=== PATIENT | female | born 1970 | race Caucasian/White ===

== ENCOUNTER 2020-09-15 22:47 | Emergency (ER) | payer MEDICAID, SELFPAY ==
[2020-09-15 22:48] VITALS: BP 170/114; PULSE 78; RESP 18; TEMP 37.1; O2SAT 94; BMI 36.3
--- NOTE | 2020-09-15 23:13 | RAD_ITS ---
STUDY: X-RAY - LEFT HAND REASON FOR EXAM: Female, 50 years old. bite TECHNIQUE: 3 view(s) of the hand. COMPARISON: None. FINDINGS: Normal radiocarpal articulation. Normal distal radioulnar joint. Normal visualized carpal bones. Normal carpal articulations Normal carpometacarpal articulation of the thumb. Normal second through fifth carpometacarpal joints. Normal metacarpi. Normal metacarpophalangeal joint of the thumb. Normal interphalangeal joint of the thumb. Normal proximal and distal phalanges of the thumb. Normal metacarpophalangeal joints of the second through fifth fingers. Normal proximal and distal interphalangeal joints of the second through fifth fingers. Normal phalanges of the second through fifth fingers. The soft tissue structures are unremarkable. RAD/Hand Min 3 Views IMPRESSION: Normal x-ray examination of the hand. Electronically Signed: Bernardo Greene DO at 23:37 EDT Tel , Service support ,
--- NOTE | 2020-09-15 23:13 | RAD_ITS ---
STUDY: X-RAY - LEFT WRIST REASON FOR EXAM: Female, 50 years old. bite TECHNIQUE: 3 view(s) of the wrist were obtained. COMPARISON: None. FINDINGS: Normal visualized distal radius and ulna. Normal radiocarpal articulation. Normal distal radioulnar articulation. Normal carpal bones. Normal carpal articulations. Normal carpometacarpal articulation of the thumb. Normal second through fifth carpometacarpal articulations. Normal visualized metacarpal bones. Diffuse soft tissue swelling RAD/Wrist min 3 Views IMPRESSION: Soft tissue swelling without acute osseous finding Electronically Signed: Bernardo Greene DO at 23:37 EDT Tel , Service support ,
[2020-09-15] MEDS: morphine 8 MG/ML Syringe IM (23:20)
[2020-09-15] MEDS: Lidocaine 1% /Epi 1:100 (20ml) 20 ML Vial INFILT (23:21)
[2020-09-15] MEDS: BACITRACIN 15 GM Tube 1 APPLIC TOPICAL (23:22)
[2020-09-16 01:00] VITALS: RESP 16
--- NOTE | 2020-09-16 02:45 | EDS_ITS ---
HPI History of Present Illness Chief Complaint: Bite Narrative Narrative: Patient presenting for evaluation secondary to a dog bite. This was a known dog, it bit her left hand and wrist. Patient states that she is up-to-date on her tetanus. She reports a moderate to severe amount of pain in her left hand and wrist and multiple lacerations. Patient reports that the dog is achy up-to-date on its vaccines. Review of systems otherwise negative. [facility] Medical History Cervical cancer Home Medications acetaminophen 650 mg PO Q6H PRN PRN 09/15/20 [History Last Taken Unknown] amoxicillin-pot clavulanate [Augmentin] 1 tab PO BID #20 tab 09/16/20 [Rx Last Taken Unknown] oxycodone-acetaminophen [Percocet] 1 tab PO Q8H PRN 3 Days #9 tab 09/16/20 [Rx Last Taken Unknown] Allergy/AdvReac Type Severity Reaction Status Date / Time No Known Allergies Allergy Verified 09/15/20 22:49 Surgical History H/O: History of cholecystectomy Social History Smoking Status: Current every day smoker tobacco type: cigarettes ROS ROS ED Constitutional Constitutional ED: Denies fever(s) Respiratory/Chest Respiratory/Chest: Denies cough or dyspnea Gastrointestinal Gastrointestinal: Reports nausea; Denies vomiting Musculoskeletal Musculoskeletal: Reports other Details: Pain and dog bites Integumentary Reports other Details: Positive for wounds Neurologic Neurologic: Denies paresthesias or weakness Hematologic/Lymphatic Hematologic/Lymphatic: Denies easy bleeding or easy bruising Allergic/Immunologic Allergic/Immunologic ED: Reports other Details: No history of immunosuppression EXAM Physical Exam Const Vital Signs: 09/15/20 22:48 09/16/20 01:00 09/16/20 02:59 Temperature 98.7 F Temperature Source Temporal Pulse Rate 78 80 Respiratory Rate 18 16 16 Blood Pressure 170/114 H Blood Pressure Mean 132 Pulse Ox 94 97 Oxygen Delivery Method Room Air Positive well nourished and well developed General Appearance ED: well developed and NAD HEENT atraumatic Eyes EOMs intact bilaterally Neck full ROM Resp normal respiratory effort and clear to auscultation bilaterally Cardio regular rhythm and no murmurs Cardio Narrative: 2+ radial pulses bilaterally symmetric Rate: regular rate Extremity Extremity Narrative: Examination of the patient's left hand and wrist shows multiple lacerations as noted. There is normal flexion and extension of the fingers, normal flexion extension abduction and adduction of the thumb. Normal flexion extension at the wrist. Normal sensation over all dermatomes normal capillary refill normal pulses. Neuro oriented x3, no focal motor deficits and no sensory deficits noted Sensorium / Orientation: alert Psych mental status grossly normal Skin Skin Narrative: Wounds as noted Image ED - Upper Extremity Diagram: 1. 4cm 2. 2cm 3. 6cm 4. 4cm 5. 6cm 6. 4cm flap 7. #3 small (2-5mm) communicating puncture wounds 8. 5mm PROC Procedures Upper Extremity Splints Upper Extremity Splint: Orthoglass and Volar Splint Fabrication: Fabricated Location: Left Other Procedures Procedure(s): Complex laceration repair: Multiple laceration repair was performed on the patient's hand, I will refer to the lacerations by their numbering in the physical exam. All of the wounds were explored through full range of motion, should there be any abnormal findings these are described below. They were copiously irrigated under pressure with sterile saline. 1. 4 cm laceration on the dorsum of the forearm was anesthetized using lidocaine with epinephrine. There was a nonviable vein that was ligated with 5- 0 Vicryl suture, and the nonviable tissue was trimmed with good hemostasis. This wound was explored there was no other evidence of violation of deep structures, it was loosely approximated with 2 simple interrupted 4-0 nylon sutures 2. 2 cm laceration on the dorsum of the hand was explored. There is subcutaneous fat that was exposed posed. There was no evidence of violation of deep structures. This was approximated using a single simple interrupted 4-0 nylon suture after he was anesthetized with 1% lidocaine. 3. 6 cm laceration over the volar surface of the patient's wrist. There was a large amount of subcutaneous fat exposed. Exploration did not show evidence of violation of any deep structures or involvement of the radial artery. Exposed adipose tissue was replaced as it appeared viable, and the wound was approximated using a total of number three 4-0 nylon sutures. 4. 4 cm laceration just proximal and ulnar to #3 had a nonviable vein that was tied off with 5-0 nylon suture, was trimmed with good hemostasis. There was no evidence of violation of other deep structures. This laceration was closed using a total of number three 4-0 nylon sutures. 5. 6 cm curvilinear laceration proximal to #3 over the radial portion of the forearm. No violation of deep structures, no involvement of the radial artery. This was approximated using a total of #3 simple interrupted 4-0 nylon sutures 6. 4 cm flap-like laceration over the thenar portion of the palm of the patient's left hand. There was exposed subcutaneous fat, but no violation of deep structures. This was closed using a horizontal mattress suture, a single horizontal mattress suture was used to approximate the corner of the wound loosely using 4-0 nylon suture 7. Smaller puncture wounds that were communicating numbering 3 over the dorsal portion of the patient's proximal thumb. These were anesthetized and copiously irrigated under pressure and left open and not closed. No evidence of violation of deep structures 8. Small 0.5 cm laceration proximal and ulnar to #4. There was subcutaneous fat that was exposed. No evidence of other violation of deep structures. This was approximated using a single simple interrupted 4-0 nylon suture. The wounds were all covered with bacitracin. Nonstick dressing and Kerlix were placed over top of that. Splint was placed as noted in the separate procedure note. MDM MDM MDM Narrative Medical decision making narrative: Patient presented secondary to a dog bite. Radiographs were obtained, by my personal interpretation as well as radiology these do not demonstrate any evidence of bony injury to the hand. There was a multitude of dog bites that were repaired as noted in the procedure note. Patient was given morphine initially on presentation for pain. Patient's hand was bandaged by the ED physician as well as was placed in a fabricated volar resting splint by the ED physician as noted in the procedure note. I contacted Dr. Akhtar who agreed to see the patient in follow-up. Patient was given oxycodone and Augmentin prior to discharge, she will be discharged with a course of the same. She was educated on the importance of follow-up, the risks of being lost to follow-up including permanent debility or loss of the hand she did voiced understanding of this. Patient understands to return should she have signs of infection or worsening symptoms. Patient was discharged in stable condition. Radiography Diagnostic Testing: Radiology Impression Hand X-Ray 09/15/20 23:13 IMPRESSION: Normal x-ray examination of the hand. Electronically Signed: Bernardo Greene DO at 23:37 EDT Tel , Service support , Wrist X-Ray 09/15/20 23:13 IMPRESSION: Soft tissue swelling without acute osseous finding Electronically Signed: Bernardo Greene DO at 23:37 EDT Tel , Service support , Discharge Plan Triage Chief Complaint: Bite ED Provider: Garrett Biswas Dx/Rx/DC Orders Clinical Impression: Dog bite, Hand laceration, Laceration of wrist Instructions: ED Dog Bite, ED Laceration, Hand: All Closures Prescriptions: New amoxicillin-pot clavulanate [Augmentin] 875-125 mg tablet 1 tab PO BID Qty: 20 RF: 0 oxycodone-acetaminophen [Percocet] 5-325 mg tablet 1 tab PO Q8H PRN (Reason: pain) 3 Days Qty: 9 RF: 0 No Action acetaminophen 325 mg tablet 650 mg PO Q6H PRN PRN (Reason: Pain) RF: 0 Primary Care Provider: Salo Dyer Referrals: Salo Dyer DO [Primary Care Provider] - Rambo Akhtar MD [STAFF PHYSICIAN] - 2 Days for wound check Activity Restrictions/Additional Instructions: Follow-up with orthopedics in 2 days for wound check. Return to orthopedics or the emergency department earlier should you develop signs of infection. Disposition Disposition: Home, Self Care Discharge Date/Time: 09/16/20 03:07
[2020-09-16] MEDS: Amox/Clavulanate 875 MG Tablet PO (02:50)
[2020-09-16] MEDS: oxyCODONE 5 MG Tablet PO (02:50)
[2020-09-16 02:59] VITALS: PULSE 80; RESP 16; O2SAT 97
== END 2020-09-16 03:07 | disposition home or self-care (01) ==
PROVIDERS: Emergency Provider Emergency Medicine; PCP Student in an Organized Health Care Education/Training Program
DX: S61.552A Open bite of left wrist, initial encounter (principal); S61.452A Open bite of left hand, initial encounter; S51.852A Open bite of left forearm, initial encounter; F17.210 Nicotine dependence, cigarettes, uncomplicated; W54.0XXA Bitten by dog, initial encounter; Y93.89 Activity, other specified; Y92.007 Garden or yard of unspecified non-institutional (private) residence as the place of occurrence of the external cause; Y99.8 Other external cause status
CPT/HCPCS: 12006; 29125; 73110; 73130; 96372; 99284

== ENCOUNTER 2021-03-17 20:40 | Emergency (ER) | payer MEDICAID, SELFPAY ==
[2021-03-17 20:40] VITALS: BP 181/108; PULSE 99; RESP 18; TEMP 36.3; O2SAT 99; BMI 37.3
--- NOTE | 2021-03-17 21:31 | EDS_ITS ---
HPI History of Present Illness Chief Complaint: General Illness Informant: patient Onset/Context/Timing Onset: Days (4) Context: Gradual Onset Timing: Continuous Quality: [employer] cough, sob Current Severity: Moderate Maximum Severity: Moderate Worsened by: exertion Relieved by: rest Associated Symptoms Associated Symptoms: fatigue/malaise, cough, myalgias, headaches Associated Symptoms ED: cough Narrative Narrative: Patient with cold/flu symptoms for the past 4 days. Mild dyspnea with exertion, it takes a bit of exertion for her to feel this. No chest discomfort, abdominal pain, vomiting, or diarrhea. Unvaccinated. She is otherwise healthy she states. Denies any leg pain or swelling or recent long travel. 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 [facility] Medical History Cervical cancer Home Medications NK 03/17/21 [History Last Taken Unknown] Allergy/AdvReac Type Severity Reaction Status Date / Time No Known Allergies Allergy Verified 09/15/20 22:49 Surgical History H/O: History of cholecystectomy Social History Smoking Status: Current every day smoker tobacco type: cigarettes ROS ROS ED Constitutional Constitutional ED: Reports body ache(s), chills, fatigue, fever(s), headache(s) and malaise Eyes Eyes: Denies change in vision or diplopia ENT ENT ED: Denies rhinorrhea or sore throat Cardiovascular Cardiovascular: Denies chest pain or palpitations Respiratory/Chest Respiratory/Chest: Reports cough and dyspnea on exertion Gastrointestinal Gastrointestinal: Denies abdominal pain, diarrhea, nausea or vomiting Genitourinary Genitourinary ED: Denies dysuria or hematuria Musculoskeletal Musculoskeletal: Denies back pain or neck pain Integumentary Denies abscess or rash Neurologic Neurologic: Reports headache(s); Denies paresthesias or weakness Psychiatric Psychiatric: Denies anxiety or suicidal thoughts EXAM Physical Exam Const Vital Signs: 03/17/21 20:40 03/17/21 21:49 03/17/21 23:16 Temperature 97.4 F L Temperature Source Temporal Pulse Rate 99 Respiratory Rate 18 Respiratory Effort Normal Respiratory Pattern Normal Blood Pressure 181/108 H 137/81 H Blood Pressure Mean 132 99 Pulse Ox 99 Oxygen Delivery Method Room Air Positive well nourished and well developed Constitutional Narrative: Malaised-appearing, no distress General Appearance ED: well developed and NAD HEENT Reports moist mucous membranes normocephalic and atraumatic Eyes PERRL and EOMs intact bilaterally Neck full ROM and supple Resp normal respiratory effort and clear to auscultation bilaterally Cardio regular rate, regular rhythm and no murmurs Rate: Negative for tachycardic GI non-tender and non-distended Auscultation: normoactive bowel sounds Palpation: soft Back/Spine no CVA tenderness General Back: other FROM Extremity normal to inspection and no calf tenderness General Extremety ED: Negative for edema, pulses abnormal or tenderness General Extremity: Negative for edema or pulses abnormal Neuro oriented x3, CN's II-XII intact bilaterally and no sensory deficits noted Sensorium / Orientation: awake and alert Motor Exam: strength 5/5 throughout Skin no rashes or lesions noted and no wounds MDM MDM MDM Narrative Medical decision making narrative: Patient symptoms highly suspicious for COVID- 19 especially since she was unvaccinated. Her rapid is negative but with the current omicron variant, the rapid test is less accurate. Therefore PCR was sent and a center of her chest x-ray, which is normal. Patient is reassured, we rechecked her blood pressure since her initial 1 was very high, it is normal. She has been taking some cold medication which could be contributing to this. At this time I recommend supportive care, and isolating herself as if she could have COVID-19. We discussed reasons to return. Radiography Diagnostic Testing: Clinical Impression(s) from Imaging Studies Chest X-Ray 03/17/21 22:20 IMPRESSION: Normal x-ray examination of the chest. Electronically Signed: Bernardo Greene DO at 23:11 EST Tel , Service support , Discharge Plan Triage Chief Complaint: General Illness ED Provider: Shalom Menchaca Dx/Rx/DC Orders Clinical Impression: Acute viral syndrome, Suspected 2019-nCoV infection Instructions: Coronavirus Disease 2019 (COVID-19): Overview Prescriptions: No Action NK RF: 0 Primary Care Provider: Salo Dyer Referrals: Salo Dyer, [Primary Care Provider] - 1 Week if not improving Activity Restrictions/Additional Instructions: Try to get a home portable pulse oximeter and closely watch your oxygen levels periodically. If you stay below 90% for more than a minute or so, and/or you are feeling like your breathing is getting worse, return to the emergency department for further evaluation. Disposition Disposition: Home, Self Care
[2021-03-17] MEDS: Ketorolac 60 MG/2 ML Vial IM (21:48)
--- NOTE | 2021-03-17 22:20 | RAD_ITS ---
STUDY: X-RAY CHEST REASON FOR EXAM: Female, 50 years old. cough fever sob TECHNIQUE: Single AP portable view of the chest. COMPARISON: None. FINDINGS: The lungs are clear and expanded. There is no demonstrated pleural abnormality. Normal size heart. Normal mediastinum and paul. Normal visualized pulmonary arteries. Normal visualized aortic arch and descending thoracic aorta. Normal visualized thoracic spine. Normal visualized ribs, clavicles, and shoulders. There is no demonstrated abnormality of the visualized soft tissue structures of the upper abdomen. RAD/Chest 1 View (Portable) IMPRESSION: Normal x-ray examination of the chest. Electronically Signed: Bernardo Greene DO at 23:11 EST Tel , Service support ,
[2021-03-17 23:16] VITALS: BP 137/81
[2021-03-17 23:34] VITALS: BP 137/81; PULSE 70; RESP 18; O2SAT 100
== END 2021-03-17 23:34 | disposition home or self-care (01) ==
PROVIDERS: Emergency Provider Emergency Medicine; PCP Student in an Organized Health Care Education/Training Program; Visit Provider Emergency Medicine
DX: B34.9 Viral infection, unspecified (principal); R06.02 Shortness of breath; Z20.822 Contact with and (suspected) exposure to COVID-19; M79.10 Myalgia, unspecified site; R51.9 Headache, unspecified; F17.210 Nicotine dependence, cigarettes, uncomplicated; Z85.41 Personal history of malignant neoplasm of cervix uteri; R05.9 Cough, unspecified; R53.81 Other malaise
CPT/HCPCS: U0003; 71045; 87426; 87635; 96372; 99283; U0005

== ENCOUNTER 2021-09-01 13:00 | Emergency (ER) | payer MEDICAID, SELFPAY ==
[2021-09-01 13:00] VITALS: BP 129/86; PULSE 110; RESP 16; TEMP 36.6; O2SAT 97; BMI 38.9
--- NOTE | 2021-09-01 15:33 | ED.VIS.LOWEX ---
HPI History of Present Illness Chief Complaint: Foreign Body Informant: patient Narrative Narrative: 51-year-old female presenting to the emergency room with a fishhook in the plantar surface of her foot. Unknown last tetanus. This occurred while fishing. She cut part of the hook off and is unsure of how much remains inside the foot Tetanus Immunization: Unknown [facility] Medical History Cervical cancer Home Medications cephalexin 500 mg capsule 500 mg PO Q6 #20 CAPSULES 09/01/21 [Rx Last Taken Unknown] naproxen 500 mg tablet 500 mg PO BID #20 tabs 09/01/21 [Rx Last Taken Unknown] Allergy/AdvReac Type Severity Reaction Status Date / Time No Known Allergies Allergy Verified 09/01/21 13:02 Surgical History H/O: History of cholecystectomy Social History (Updated 09/01/21 @ 15:[address] Jr Woody DO) Smoking Status: Current every day smoker tobacco type: cigarettes substance use type: does not use ROS ROS ED Constitutional Constitutional ED: Denies chills or weight loss Eyes Eyes: Denies change in vision or diplopia ENT ENT ED: Denies ear pain, rhinorrhea or sore throat Cardiovascular Cardiovascular: Denies chest pain, orthopnea, palpitations or racing heartbeat Respiratory/Chest Respiratory/Chest: Denies cough, dyspnea or orthopnea Gastrointestinal Gastrointestinal: Denies abdominal pain, diarrhea, nausea or vomiting Genitourinary Genitourinary ED: Denies dysuria, hematuria or urinary frequency Musculoskeletal Musculoskeletal: Reports other Details: See history of present illness ; Denies arthralgias or myalgias Integumentary Denies abscess or rash Neurologic Neurologic: Denies headache(s) or weakness Psychiatric Psychiatric: Denies anxiety, depression, suicidal ideation or suicidal thoughts Endocrine Endocrinology: Denies polydipsia, polyphagia or polyuria Allergic/Immunologic Allergic/Immunologic ED: Denies mouth swelling, tongue swelling or urticaria EXAM Physical Exam Const Vital Signs: 09/01/21 13:00 09/01/21 15:00 Temperature 97.8 F Temperature Source Temporal Pulse Rate 110 H Respiratory Rate 16 Respiratory Effort Normal Non-Labored Respiratory Pattern Normal Blood Pressure 129/86 H Blood Pressure Mean 100 Pulse Ox 97 Oxygen Delivery Method Room Air Positive well nourished and well developed General Appearance ED: well developed HEENT Reports normocephalic, head/scalp atraumatic and moist mucous membranes Eyes PERRL and EOMs intact bilaterally Neck no lymphadenopathy, supple and no JVD Resp normal respiratory effort and clear to auscultation bilaterally Cardio regular rate, regular rhythm and no murmurs GI normal to inspection, nondistended, normoactive bowel sounds and non-tender Palpation: soft Back/Spine no CVA tenderness and normal ROM Extremity Extremity Narrative: There is a metallic foreign body sticking out of the plantar surface of the left foot near the first and second metatarsal heads General Extremety ED: Negative for edema General Extremity: Negative for edema Neuro oriented x3 and CN's II-XII intact bilaterally Sensorium / Orientation: alert Motor Exam: strength 5/5 throughout Psych mental status grossly normal Mood & Affect: Negative for depressed or tearful Skin no rashes or lesions noted MDM MDM MDM Narrative Medical decision making narrative: My interpretation of the plain films of the left foot is metallic hook noted on the plantar surface. Plantar surface of the foot was scrubbed with Betadine and allowed to dry the wound was locally anesthetized using 1% lidocaine. The hook then went inside the skin and so a small superficial incision measuring about 2 mm was made with 11 blade. I was unable to visualize the hook and grasped it with locking hemostats. And the hook was easily removed. Homeostasis achieved wound was dressed patient was placed on Keflex. Her tetanus was updated with Adacel. Patient also notes that while she is here she would like to see about getting her back checked out. She states that few days ago she fell and since that time is had pain in her back that radiates down into her leg when she particularly when she gets up out of a chair or off the couch. She is requesting some naproxen. Radiography Diagnostic Testing: Clinical Impression(s) from Imaging Studies Foot X-Ray 09/01/21 15:40 IMPRESSION: No acute fracture or dislocation in the left foot. 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 A 0.7 cm linear metallic foreign body in the superficial soft tissues on the plantar aspect of the forefoot medially. Calcaneal plantar spur. Electronically Signed: Manuel Galan MD at 15:54 EDT , Discharge Plan Triage Chief Complaint: Foreign Body ED Provider: Jr Woody Dx/Rx/DC Orders Clinical Impression: Foreign body (FB) in soft tissue, Sciatica Instructions: ED Foreign Body, Soft Tissue (Removed), ED Sciatica Prescriptions: New cephalexin [cephalexin] 500 mg capsule 500 mg PO Q6 Qty: 20 0RF naproxen 500 mg tablet 500 mg PO BID Qty: 20 0RF Primary Care Provider: Salo Dyer Referrals: Salo Dyer DO [Primary Care Provider] - As Needed Disposition Disposition: Home, Self Care
[2021-09-01] MEDS: Diphth,Pertuss(Acell),Tet Vac 0.5 ML Vial IM (15:38)
--- NOTE | 2021-09-01 15:40 | RAD_ITS ---
STUDY: X-RAY - LEFT FOOT CLINICAL: Female, 51 years old. foreign body TECHNIQUE: view(s) of the foot. COMPARISON: None. FINDINGS: Please see the impression. RAD/Foot min 3 Views IMPRESSION: No acute fracture or dislocation in the left foot. 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 A 0.7 cm linear metallic foreign body in the superficial soft tissues on the plantar aspect of the forefoot medially. Calcaneal plantar spur. Electronically Signed: Manuel Galan MD at 15:54 EDT ,
[2021-09-01] MEDS: Lidocaine 1% (20 ml mdv) 20 ML Vial INFILT (16:13)
[2021-09-01 16:14] VITALS: PULSE 97; RESP 15; O2SAT 99
== END 2021-09-01 16:15 | disposition home or self-care (01) ==
PROVIDERS: Emergency Provider Emergency Medicine; PCP Student in an Organized Health Care Education/Training Program; Visit Provider Emergency Medicine
DX: S91.342A Puncture wound with foreign body, left foot, initial encounter (principal); F17.210 Nicotine dependence, cigarettes, uncomplicated; M54.30 Sciatica, unspecified side; W45.8XXA Other foreign body or object entering through skin, initial encounter; Y93.89 Activity, other specified; Y99.9 Unspecified external cause status; Z18.10 Retained metal fragments, unspecified; Y92.9 Unspecified place or not applicable; Z23 Encounter for immunization
CPT/HCPCS: 10120; 73630; 90471; 90715; 99283

== ENCOUNTER 2022-02-13 20:20 | Emergency (ER) | payer MEDICAID, SELFPAY ==
[2022-02-13 20:21] VITALS: BP 139/99; PULSE 98; RESP 16; TEMP 36.6; O2SAT 97; BMI 38.9
--- NOTE | 2022-02-13 21:18 | EDS_ITS ---
HPI History of Present Illness Chief Complaint: General Illness Informant: patient Onset/Context/Timing Onset: Days (3) Context: Gradual Onset Timing: Continuous Quality: Aching Location: Bilateral ears Worsened by: Nothing Relieved by: Nothing Narrative Narrative: Patient presents with cough and upper respiratory congestion that has been getting worse over the past 3 days. Patient admits to bilateral ear pain. Patient midst of a headache. Patient states she is not having any sputum production. Patient admits to subjective fevers and chills. Patient states her pain goes into her back whenever she coughs. Patient denies any nausea, vomiting, or diarrhea. Patient states nothing makes her symptoms better nothing makes them worse. [facility] Medical History Cervical cancer Home Medications multivitamin 1 tab PO DAILY 02/13/22 [History Last Taken Unknown] Allergy/AdvReac Type Severity Reaction Status Date / Time No Known Allergies Allergy Verified 02/13/22 20:20 Surgical History H/O: History of cholecystectomy Social History Smoking Status: Current every day smoker tobacco type: cigarettes substance use type: does not use ROS ROS ED Constitutional Constitutional ED: Reports chills, fever(s) and subjective Eyes Eyes: Denies blurry vision or change in vision ENT ENT ED: Reports ear pain bilateral; Denies rhinorrhea or sore throat Cardiovascular Cardiovascular: Reports chest pain; Denies palpitations Respiratory/Chest Respiratory/Chest: Reports cough and dyspnea Gastrointestinal Gastrointestinal: Denies nausea or vomiting Genitourinary Genitourinary ED: Denies dysuria or hematuria Musculoskeletal Musculoskeletal: Reports back pain; Denies neck pain Integumentary Denies abscess or rash Neurologic Neurologic: Reports headache(s); Denies weakness Allergic/Immunologic Allergic/Immunologic ED: Denies mouth swelling or urticaria EXAM Physical Exam Const Vital Signs: 02/13/22 20:21 02/13/22 21:14 02/13/22 22:25 Temperature 97.8 F Temperature Source Temporal Pulse Rate 98 78 Respiratory Rate 16 18 Respiratory Pattern Normal Normal Blood Pressure 139/99 H Blood Pressure Mean 112 Pulse Ox 97 Oxygen Delivery Method Room Air Positive well nourished, well developed and obese General Appearance ED: well developed and NAD Nutritional Appearance: obese HEENT Reports moist mucous membranes HEENT Narrative: There is tenderness over the frontal and maxillary sinuses bilaterally. Nasal mucosa is congested. Eyes PERRL and EOMs intact bilaterally Neck supple and no JVD Resp normal respiratory effort and clear to auscultation bilaterally Cardio regular rate and regular rhythm GI normal to inspection, nondistended, normoactive bowel sounds, non-tender and non-distended Palpation: soft Neuro oriented x3, CN's II-XII intact bilaterally and no sensory deficits noted Sensorium / Orientation: alert Motor Exam: strength 5/5 throughout MDM MDM MDM Narrative Medical decision making narrative: Patient was given a DuoNeb aerosol here. Patient was given a dose of Tylenol. PA and lateral chest x-ray was obtained. There are 2 views. On my interpretation, lung vizcarra are clear. There is normal cardiac silhouette. Bony thorax is normal. There is no acute process noted. Radiologist also interpreted the x-ray and agrees. COVID-19 rapid antigen was obtained and was negative. Influenza A and influenza B rapid antigens were obtained and were negative. Rapid strep was obtained and was negative. Patient was advised of her findings. Patient was instructed to drink plenty of fluids. Patient was instructed to take Tylenol or ibuprofen as needed for any fevers or aches. Patient was instructed to follow-up with her primary care physician in 5 to 7 days. Patient understood and was agreeable with the plan. All questions were answered. Radiography Chest X-Ray - ED: 2 View, Read by ED Physician, Read by Radiologist and No Acute Disease Diagnostic Testing: Clinical Impression(s) from Imaging Studies Chest X-Ray 02/13/22 21:44 IMPRESSION: No evidence of active intrathoracic disease. Electronically Signed: Della Mina MD at 22:11 EST , Discharge Plan Triage Chief Complaint: General Illness ED Provider: Kentrell Jackson Dx/Rx/DC Orders Clinical Impression: Viral upper respiratory infection, Cough Instructions: ED URI, Viral, No Abx (Adult) Prescriptions: No Action multivitamin Tablet 1 tab PO DAILY Primary Care Provider: Salo Dyer Referrals: Salo Dyer DO [Primary Care Provider] - 5-7 Days Disposition Disposition: Home, Self Care
--- NOTE | 2022-02-13 21:44 | RAD_ITS ---
STUDY: X-RAY CHEST REASON FOR EXAM: Female, 51 years old. Cough TECHNIQUE: PA and lateral COMPARISON: 03/17/2021. FINDINGS: LUNGS: No consolidation. No pneumothorax. MEDIASTINUM: Unremarkable. CARDIAC SILHOUETTE: Not enlarged. BONES AND SOFT TISSUES: Mild degenerative changes in the dorsal spine. RAD/Chest PA and Lateral IMPRESSION: No evidence of active intrathoracic disease. Electronically Signed: Della Mina MD at 22:11 EST ,
[2022-02-13] MEDS: Acetaminophen 500 MG Tablet 1000 MG PO (21:54)
[2022-02-13] MEDS: Ipratropium/Albuterol Sulfate 3 ML AMPUL.NEB INHALATION (22:24)
[2022-02-13 22:25] VITALS: PULSE 78; RESP 18
== END 2022-02-13 23:36 | disposition home or self-care (01) ==
PROVIDERS: Emergency Provider Emergency Medicine; PCP Student in an Organized Health Care Education/Training Program; Visit Provider Emergency Medicine
DX: J06.9 Acute upper respiratory infection, unspecified (principal); R51.9 Headache, unspecified; F17.210 Nicotine dependence, cigarettes, uncomplicated; H92.03 Otalgia, bilateral; E66.9 Obesity, unspecified; R07.9 Chest pain, unspecified; Z20.822 Contact with and (suspected) exposure to COVID-19
CPT/HCPCS: 71046; 87428; 87880; 94640; 99283

== ENCOUNTER 2023-04-21 18:27 | Emergency (ER) | payer MEDICAID, SELFPAY ==
[2023-04-21 18:27] VITALS: BP 138/77; PULSE 119; RESP 18; TEMP 37.8; O2SAT 97; BMI 40.7
--- NOTE | 2023-04-21 18:54 | EDS_ITS ---
HPI <CARLA Gongora - Last Filed: 04/21/23 20:54> History of Present Illness Chief Complaint: General Illness Narrative Narrative: 52-year-old female with PMH of asthma, tobacco use presents with 3 days of fever and chills, headache, body aches, congestion and cough. She states she also has ongoing shortness of breath from her asthma. No chest pain. No GI symptoms. She was around her neighbor who is sick. She smokes 1/2 PPD and has an albuterol inhaler. She has not seen a doctor in years. She also reports she recently had UTI symptoms but it cleared up with taking cranberry pills. PFSH <CARLA Gongora - Last Filed: 04/21/23 20:54> [facility] Medical History Cervical cancer Home Medications multivitamin 1 tab PO DAILY 02/13/22 [History Last Taken Unknown] cephalexin 500 mg capsule 500 mg PO Q6 7 days #28 CAPSULES 04/21/23 [Rx Last Toney en Unknown] Allergy/AdvReac Type Severity Reaction Status Date / Time No Known Allergies Allergy Verified 04/21/23 18:29 Surgical History H/O: History of cholecystectomy Social History Smoking Status: Current every day smoker tobacco type: cigarettes substance use type: does not use ROS <CARLA Gongora - Last Filed: 04/21/23 20:54> ROS ED ROS Narrative Constitutional: Positive for fever, chills, malaise. ENT: Positive for rhinorrhea. CVS: Negative for chest pain. Respiratory: Positive for cough. GI: Negative for abdominal pain, nausea, vomiting, diarrhea. Neuro: Positive for headache. EXAM <CARLA Gongora - Last Filed: 04/21/23 20:54> Physical Exam Narrative Exam Narrative: CONST: Patient sitting in no acute distress. EYES: Normal inspection. ENT: Normal inspection, moist mucous membranes. NECK: Normal inspection. RESP: No respiratory distress, CTAB. CVS: Regular rate and rhythm, no murmur, no gallop. ABD: Soft and nontender, no guarding or rebound, nondistended. SKIN: Color normal, no rash, warm, dry, intact. EXTREMITIES: Normal appearance, no pedal edema. NEURO: Oriented x4. PSYCH: Normal affect. Const Vital Signs: 04/21/23 18:27 04/21/23 18:54 04/21/23 18:55 Temperature 100.0 F H Temperature Source Oral Pulse Rate 119 H Respiratory Rate 18 Respiratory Effort Normal Non-Labored Respiratory Pattern Normal Blood Pressure 138/77 H Blood Pressure Mean 97 Pulse Ox 97 Oxygen Delivery Method Room Air Room Air 04/21/23 19:27 04/21/23 20:37 04/21/23 20:37 Temperature 99.0 F 99 F Temperature Source Oral Oral Pulse Rate 104 H 104 H Respiratory Rate 16 16 Respiratory Effort Respiratory Pattern Blood Pressure 128/67 H 128/67 H Blood Pressure Mean 87 87 Pulse Ox 98 98 Oxygen Delivery Method Room Air Room Air Room Air <Dr. Kentrell Jackson DO - Last Filed: 04/21/23 21:42> Physical Exam Const Vital Signs: 04/21/23 18:27 04/21/23 18:54 04/21/23 18:55 Temperature 100.0 F H Temperature Source Oral Pulse Rate 119 H Respiratory Rate 18 Respiratory Effort Normal Non-Labored Respiratory Pattern Normal Blood Pressure 138/77 H Blood Pressure Mean 97 Pulse Ox 97 Oxygen Delivery Method Room Air Room Air 04/21/23 19:27 04/21/23 20:37 04/21/23 20:37 Temperature 99.0 F 99 F Temperature Source Oral Oral Pulse Rate 104 H 104 H Respiratory Rate 16 16 Respiratory Effort Respiratory Pattern Blood Pressure 128/67 H 128/67 H Blood Pressure Mean 87 87 Pulse Ox 98 98 Oxygen Delivery Method Room Air Room Air Room Air [facility] <CARLA Gongora - Last Filed: 04/21/23 20:54> [facility] Narrative Medical decision making narrative: Patient has flulike symptoms with cough/congestion and recent UTI symptoms. She appears ill but nontoxic. HR is 119, temp 100.0 F, otherwise normal vital signs. Other than tachycardia her exam is benign. Labs show white count of 23.1, lactate 0.9, UA positive for UTI. Blood and urine cultures sent. She was treated with IV fluids, Toradol, Tylenol, and Rocephin. CXR shows no acute infiltrate. There is a small left pleural effusion versus atelectasis or pleural thickening. Swab for COVID/flu/RSV is also negative. I offered admission for UTI/sepsis but patient would prefer to go home. Her vital signs have improved so it is reasonable to trial Keflex 4 times daily. I discussed she should return for any worsening symptoms and continue [id number] analgesia. She was discharged in stable condition. Differential: Viral URI, pneumonia, UTI Tests considered but not ordered: She has no abdominal or flank pain so I do not suspect pyelonephritis or kidney stone I do not think a CT scan is indicated Lab Data Attestation: I reviewed the patient's lab results. Labs: Laboratory Results - last 24 hr 04/21/23 04/21/23 04/21/23 18:55 19:11 19:31 WBC 23.1 H RBC 4.49 Hgb 12.5 Hct 37.3 MCV 83.1 MCH 27.8 MCHC 33.5 RDW Std Deviation 45.1 H RDW Coeff of Agnieszka 14.9 H Plt Count 251 MPV 9.8 Immature Gran % (Auto) 0.900 Neut % (Auto) 84.7 H Lymph % (Auto) 4.7 L Cook % (Auto) 9.5 Eos % (Auto) 0.0 Baso % (Auto) 0.2 Absolute Neuts (auto) 19.6 H Absolute Lymphs (auto) 1.09 Nucleated RBC % 0 Differential Comment SCANNED Diff Path Review May foll Sodium 131 L Potassium 3.8 Chloride 98 Carbon Dioxide 26.0 Anion Gap 7 BUN 13 Creatinine 0.95 Estim Creat Clear Calc 80.93 Est GFR (MDRD) Af Amer 79 Est GFR (MDRD) Non-Af 66 BUN/Creatinine Ratio 13.7 Glucose 178 H Lactic Acid 0.9 Calcium 8.6 Urine Color Yellow Urine Clarity Cloudy Urine pH 7.0 Ur Specific [place] 1.010 Urine Protein 30 H Urine Glucose (UA) Normal Urine Ketones 15 H Urine Occult Blood 150 H Urine Nitrite Negative Urine Bilirubin Negative Urine Urobilinogen Normal Ur Leukocyte Esterase 500 H Urine RBC 0 SEEN Urine WBC >100 SEEN Ur Squamous Epith Cells 0-5 SEEN Urine Bacteria 0 SEEN Urine Mucus 0 SEEN Radiography Diagnostic Testing: Clinical Impression(s) from Imaging Studies Chest X-Ray 04/21/23 19:00 IMPRESSION: No acute consolidative process. Small left pleural effusion versus atelectasis and/or pleural thickening. Electronically Signed: Howard Warner MD at 20:09 EST , ED attending interpretation of 1-view chest x-ray shows normal heart size, no a cute infiltrate. <Dr. Kentrell Jackson, DO - Last Filed: 04/21/23 21:42> [facility] Lab Data Labs: Laboratory Results - last 24 hr 04/21/23 04/21/23 04/21/23 18:55 19:11 19:31 WBC 23.1 H RBC 4.49 Hgb 12.5 Hct 37.3 MCV 83.1 MCH 27.8 MCHC 33.5 RDW Std Deviation 45.1 H RDW Coeff of Agnieszka 14.9 H Plt Count 251 MPV 9.8 Immature Gran % (Auto) 0.900 Neut % (Auto) 84.7 H Lymph % (Auto) 4.7 L Cook % (Auto) 9.5 Eos % (Auto) 0.0 Baso % (Auto) 0.2 Absolute Neuts (auto) 19.6 H Absolute Lymphs (auto) 1.09 Nucleated RBC % 0 Differential Comment SCANNED Diff Path Review May foll Sodium 131 L Potassium 3.8 Chloride 98 Carbon Dioxide 26.0 Anion Gap 7 BUN 13 Creatinine 0.95 Estim Creat Clear Calc 80.93 Est GFR (MDRD) Af Amer 79 Est GFR (MDRD) Non-Af 66 BUN/Creatinine Ratio 13.7 Glucose 178 H Lactic Acid 0.9 Calcium 8.6 Urine Color Yellow Urine Clarity Cloudy Urine pH 7.0 Ur Specific [place] 1.010 Urine Protein 30 H Urine Glucose (UA) Normal Urine Ketones 15 H Urine Occult Blood 150 H Urine Nitrite Negative Urine Bilirubin Negative Urine Urobilinogen Normal Ur Leukocyte Esterase 500 H Urine RBC 0 SEEN Urine WBC >100 SEEN Ur Squamous Epith Cells 0-5 SEEN Urine Bacteria 0 SEEN Urine Mucus 0 SEEN Radiography Diagnostic Testing: Clinical Impression(s) from Imaging Studies Chest X-Ray 04/21/23 19:00 IMPRESSION: No acute consolidative process. Small left pleural effusion versus atelectasis and/or pleural thickening. Electronically Signed: Howard Warner MD at 20:09 EST , Treatment and Re-Evaluation :: I have personally performed a face to face assessment of the patient and have reviewed the EDDIE Note. I performed a substantive portion of the visit including all aspects of the following. My castelan findings include: History: Patient presents with fevers, chills, body aches that have been getting progressively worse over the past 3 days. Patient states she feels achy all over. Patient states her joints hurt as well. Patient states her pain is worse with movement. Patient admits to subjective fevers and chills. Patient states she is coughing up some green and brown sputum. Patient also admits to a sore t hroat. Patient admits to some dysuria and urgency. Patient denies any nausea or vomiting. Exam: Vital signs are stable except for a mild tachycardia of 119. Patient is febrile with a temperature of 100.0. Patient is in no acute distress. Oral mucosa is pink and moist. Neck is supple. Trachea is midline. There is no JVD. Heart was regular rate and rhythm. Lungs are clear and equal bilaterally. Abdomen is soft. Bowel sounds are normal. There is mild lower abdominal tenderness. There is no rebound or guarding noted. There is no CVA tenderness noted. Cranial nerves II through XII are intact. There are no focal motor or sensory deficits noted. Medical Decision Making: Differential diagnosis includes urinary tract infection, viral illness, sepsis, pneumonia, and electrolyte abnormality. CBC will be obtained to assess for leukocytosis and anemia. Basic metabolic profile will be obtained to assess for electrolyte abnormality and renal function. Lactate will be obtained to assess for sepsis. Urinalysis will be obtained to assess for urinary tract infection. COVID-19, influenza, and RSV PCR will be obtained to assess for viral illness. Chest x-ray will be obtained to assess for pneumonia. COVID-19 PCR was reviewed and was negative. Influenza PCR was reviewed and was negative for influenza A and influenza B. RSV PCR was reviewed and was negative. Portable 1 view chest x-ray was obtained. On my independent interpretation, lung vizcarra are clear. There is normal cardiac silhouette. Bony thorax is normal. There is no acute process noted. Radiologist also interpreted the x-ray and agrees. CBC was reviewed. There is a leukocytosis of 23.1. The remainder is within normal limits. Basic metabolic profile was reviewed. Sodium was slightly low at 131. Glucose was slightly elevated at 178. Remainder is within normal limits. Lactate was reviewed and was normal at 0.9. Urinalysis was reviewed. Leukocyte esterase was 500 with greater than 100 white blood cells. Urine culture was ordered, blood cultures were ordered. Patient was given a dose of Rocephin here. Patient wants to go home. Patient was advised of her findings. Patient was given a prescription for Keflex. Patient was instructed to drink plenty of fluids. Patient was instructed to follow-up with her primary care physician in 5 to 7 days. Patient was instructed return if worse in any way. Patient understood and was agreeable with the plan. All questions were answered. Discharge Plan Triage Chief Complaint: General Illness ED Midlevel Provider: Jessica Umanzor ED Provider: Kentrell Jackson Dx/Rx/DC Orders Clinical Impression: UTI (urinary tract infection), Upper respiratory infection, Sepsis Instructions: Adult Self-Care for Colds, UTIs Understanding Prescriptions: New cephalexin 500 mg capsule 500 mg PO Q6 7 Days Qty: 28 0RF No Action multivitamin Tablet 1 tab PO DAILY Primary Care Provider: Salo Dyer Referrals: Salo Dyer DO [Primary Care Provider] - Activity Restrictions/Additional Instructions: Take the antibiotics for UTI as well as Tylenol or ibuprofen every 6 hours for fever or pain. Return if symptoms worsen. Disposition Disposition: Home, Self Care
--- NOTE | 2023-04-21 19:00 | RAD_ITS ---
INDICATION: SOB EXAMINATION/TECHNIQUE: X-RAY - portable upright AP chest x-ray COMPARISON: 02/13/2022 FINDINGS: LINES/DEVICES: None. LUNGS: No vascular congestion, consolidation or large pleural effusion. Minimal blunting left costophrenic angle. MEDIASTINUM AND CARDIOVASCULAR STRUCTURES: Cardiac silhouette stable within normal limits. BONES AND SOFT TISSUES: Unremarkable. RAD/Chest 1 View (Portable) IMPRESSION: No acute consolidative process. Small left pleural effusion versus atelectasis and/or pleural thickening. Electronically Signed: Howard Warner MD at 20:09 EST ,
[2023-04-21 19:05] LABS: Absolute Lymphocyte Count 1.09 X10^3/uL (0.83-4.51); Absolute Neutrophil Count 19.6 X10^3/uL (2.0-7.7); Basophil# 0.04 X10^3/uL; Basophil% 0.2 % (0-1); Eosinophil# 0.01 X10^3/uL; Hematocrit 37.3 % (37-47); Hemoglobin 12.5 g/dL (12.0-15.0); Lymphocyte # 1.09 X10^3/ul (0.83-4.51); Lymphocyte % 4.7 % (19-41); Mean Corp Hgb Conc 33.5 g/dL (32-36); Mean Corpuscular Hgb 27.8 pg (27.0-32.0); Mean Corpuscular Volume 83.1 fL (81-99); Mean Platelet Vol. 9.8 fl (6.2-12.0); Monocyte# 2.19 X10^3/uL; Monocyte% 9.5 % (0-10); NRBC Flagged by Analyzer 0 % (0-5); Neutrophil # 19.59 X10^3/uL (2.7-7.7); Neutrophil % 84.7 % (47-70); POSITIVE DIFFERENTIAL YES; Platelet Count 251 K/mm3 (150-450); RBC Distribution Width CV 14.9 % (11.6-14.6); RBC Distribution Width SD 45.1 fl (35.1-43.9); Red Blood Count 4.49 M/mm3 (4.2-5.4); White Blood Count 23.1 K/mm3 (4.4-11.0)
[2023-04-21] MEDS: Ketorolac 15 MG/ML Vial IV (19:08)
[2023-04-21] MEDS: Acetaminophen 500 MG Tablet 1000 MG PO (19:08)
[2023-04-21] MEDS: 0.9% Normal Saline (1000mL) 1,000 ML 999 ML IV (19:08)
[2023-04-21 19:14] LABS: Differential Indicated SCAN CRITERIA MET
[2023-04-21 19:15] LABS: Bacteria 0 SEEN /hpf (None Seen); Mucous, Urine 0 SEEN /hpf (<or=2+); Red Blood Cells-Urine 0 SEEN /hpf (0-5)
[2023-04-21 19:17] LABS: Color, Urine Yellow (Yellow); Glucose, Dipstick Normal (Normal); Ketone-Dipstick 15 mg/dl (Negative); Leukocyte Esterase-Dipstick 500 /ul (Negative); Nitrite-Dipstick Negative (Negative); Occult Blood-Urine 150 /ul (Negative); Protein-Dipstick 30 mg/dl (Negative); Urine Bilirubin Dipstick Negative (Negative); Urine Clarity Cloudy (Clear); Urine Urobilinogen Normal (Normal)
[2023-04-21 19:18] LABS: Anion Gap 7 (5-15); BUN 13 mg/dL (7-18); BUN/Creat Ratio 13.7 RATIO (10-20); Calcium,Total 8.6 mg/dL (8.5-10.1); Chloride 98 mmol/L (98-107); Creatinine, Serum 0.95 mg/dL (0.55-1.02); EST Glomerular Filtration Rate 66 mL/min (>60); Est Glom Filt Rate - Afr Amer 79 mL/min (>60); Estimated Creatinine Clearance 80.93 ml/min; Glucose 178 mg/dL (74-106); Potassium 3.8 mmol/L (3.5-5.1); Sodium Level 131 mmol/L (136-145)
--- OUTSIDE RECORDS SUMMARY | 2023-04-21 19:19 | XMS RPT_ITS | CCD ---
Author Name Unknown Address [address] [place] [address] Organization [facility] Care Team Providers Care Billboard Poster Helper Name Role Phone JOHN AMES Unavailable Unavailable SALO KENDALL Unavailable Unavailable JOHN AMES Unavailable Unavailable SALO KENDALL Unavailable Unavailable APNKAJ ROBERTSON Unavailable Unavailable SUSAN RAMIRES Unavailable Unavailable MOAMADEO VALVERDEMITA Unavailable Unavailable TANYA LANDA Unavailable Unavailable Salo Kendall DO Primary Care Provider [phone] Salo Kendall DO Primary Care Provider SALO KENDALL Primary Care Unavailable RAFFAELE SESAY Referring Unavailable SALO KENDALL Primary Care Unavailable Medications Completed/Discontinued Medications Medication Drug Class(es) Dates Sig (Normalized) Sig (Original) benzonatate 100 mg oral capsule (4 sources) Non-narcotic Antitussive Start: 10-13-2021 take 2 capsules by mouth every eight hours as needed benzonatate (TESSALON PERLES) 100 mg capsule Take 2 capsules by mouth three times daily as needed. 30 capsule 0 10/13/2021 Active Problems Active Problems Problem Classification Problem Date Documented Da te Episodic/Chronic Biliary tract disease (3 sources) Acute cholecystitis; Translations: [Acute cholecystitis] Onset: 12-28-2017 Episodic Cancer of cervix (4 sources) Malignant tumor of cervix; Translations: [Malignant neoplasm of cervix uteri, unspecified] Onset: 12-21-2009 12-21-2009 Chronic Deficiency and other anemia (4 sources) Anemia in neoplastic disease; Translations: [Anemia in neoplastic disease] Onset: 01-11-2005 01-11-2005 Chronic Other female genital disorders (4 sources) Dyspareunia; Translations: [Dyspareunia] Onset: 04-30-2013 04-30-2013 Chronic Other non-traumatic joint disorders (1 source) Hip pain; Translations: [Pain in left hip] Episodic Other nutritional; endocrine; and metabolic disorders (4 sources) Disorder of magnesium metabolism; Translations: [Disorders of magnesium metabolism, unspecified] Onset: 01-17-2005 01-17-2005 Chronic Other nutritional; endocrine; and metabolic disorders (4 sources) Body mass index 40+ - severely obese; Translations: [Morbid (severe) obesity due to excess calories] Onset: 07-12-2017 07-12-2017 Chronic Other nutritional; endocrine; and metabolic disorders (4 sources) Obese class II; Translations: [Obesity, unspecified] Onset: 08-13-2020 08-13-2020 Chronic Other screening for suspected conditions (not mental disorders or infectious disease) (1 source) Patient encounter status; Translations: [Encounter for screening mammogram for malignant neoplasm of breast] Episodic Substance-related disorders (4 sources) Nicotine dependence; Translations: [Nicotine dependence, unspecified, uncomplicated] Onset: 08-13-2020 08-13-2020 Chronic Unclassified (1 source) APPOINTMENT CANCELLED Viral infection (1 source) Viral disease; Translations: [Viral infection, unspecified] Episodic Past or Other Problems Problem Classification Problem Date Documented Da te Episodic/Chronic Abdominal pain (4 sources) Abdominal pain; Translations: [Unspecified abdominal pain] Onset: 08-12-2020 08-12-2020 Episodic Genitourinary symptoms and ill-defined conditions (4 sources) Dysuria; Translations: [Dysuria] Onset: 01-21-2005 01-21-2005 Episodic Other non-traumatic joint disorders (1 source) Pain in left hip; Translations: [Left hip pain] Onset: 10-13-2021 Episodic Results Test Name Value Interpretation Reference Range Facil ity Vital Signs Date Time Vital Sign Value Performing Clinician Glenn martinez 10-13-2021 13:37-0400 Body temperature 97.5 [degF] Raffaele Sesay PA-C Work Phone: [facility] 10-13-2021 13:37-0400 Body weight 102.97 kg Raffaele Athy PA-C Work Phone: [facility] 10-13-2021 13:37-0400 Diastolic blood pressure 78 mm[Hg] Raffaele Athy PA-C Work Phone: [facility] 10-13-2021 13:37-0400 Heart rate 100 /min Raffaele Athy PA-C Work Phone: [facility] 10-13-2021 13:37-0400 Respiratory rate 16 /min Raffaele Athy PA-C Work Phone: [facility] 10-13-2021 13:37-0400 SaO2% (BldA) [Mass fraction] 98 % Raffaele Athy PA-C Work Phone: [facility] 10-13-2021 13:37-0400 Systolic blood pressure 132 mm[Hg] Raffaele Athy PA-C Work Phone: [facility] Encounters Encounter Date Encounter Type Care Provider Facility Start: 10-20-2021 ambulatory Salo nunn DO Work Phone: Internal Medicine [facility] Start: 10-14-2021 End: 10-14-2021 Patient encounter procedure Bettye Zee [employer] 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 Work Phone: [facility] Procedures Date Procedure Procedure Detail Performing Clinician Start: 01-04-2018 INCENTIVE SPIROMETRY RT [facility] Start: 01-03-2018 INCENTIVE SPIROMETRY RT [facility] Start: 01-03-2018 DISCHARGE PATIENT [facility] Start: 01-03-2018 INCENTIVE SPIROMETRY RT [facility] Start: 01-03-2018 INCENTIVE SPIROMETRY RT [facility] Start: 01-03-2018 INCENTIVE SPIROMETRY RT [facility] Start: 01-03-2018 INCENTIVE SPIROMETRY RT [facility] Start: 01-03-2018 INCENTIVE SPIROMETRY RT [facility] Start: 01-03-2018 INCENTIVE SPIROMETRY RT [facility] Start: 01-03-2018 INITIATE OXYGEN THER APY PROTOCOL [facility] Start: 01-03-2018 INCENTIVE SPIROMETRY RT JOHN AMES Start: 01-03-2018 Blood count complete auto&auto difrntl wbc JOHN AMES Start: 01-03-2018 Blood count complete automated JOHN AMES Start: 01-03-2018 INTAKE AND OUTPUT BATOOL AMES Start: 01-03-2018 INCENTIVE SPIROMETRY RT JOHN AMES Start: 01-02-2018 INCENTIVE SPIROMETRY RT JOHN AMES Start: 01-02-2018 INCENTIVE SPIROMETRY RT JOHN AMES Start: 01-02-2018 INCENTIVE SPIROMETRY RT JOHN AMES Start: 01-02-2018 INCENTIVE SPIROMETRY RT JOHN AMES Start: 01-02-2018 INCENTIVE SPIROMETRY RT JOHN AMES Start: 01-02-2018 INCENTIVE SPIROMETRY RT JOHN AMES Start: 01-02-2018 INCENTIVE SPIROMETRY RT JOHN AMES Start: 01-02-2018 INITIATE OXYGEN THER APY PROTOCOL JOHN AMES Start: 01-02-2018 Blood count complete auto&auto difrntl wbc JOHN AMES Start: 01-02-2018 Blood count complete automated JOHN AMES Start: 01-02-2018 INCENTIVE SPIROMETRY RT JOHN AMES Start: 01-02-2018 DIET GENERAL JOHN ROE Start: 01-02-2018 INTAKE AND OUTPUT BATOOL AMES Start: 01-02-2018 INCENTIVE SPIROMETRY RT JOHN AMES Start: 01-01-2018 INCENTIVE SPIROMETRY RT JOHN AMES Start: 01-01-2018 INCENTIVE SPIROMETRY RT JOHN AMES Start: 01-01-2018 ADVANCE DIET TOLE RATED (NURSING COMMUNICATION) JOHN AMES Start: 01-01-2018 FULL CODE JOHN ROE Start: 01-01-2018 INITIATE OXYGEN THER APY PROTOCOL JOHN AMES Start: 01-01-2018 NURSING COMMUNICATION S KENTON AMES Start: 01-01-2018 TOBACCO CESSATION EDUCATION JOHN AMES Start: 01-01-2018 VITAL SIGNS JOHN ROE Start: 01-01-2018 AMBULATE PATIENT KATIE AMES Start: 01-01-2018 WOUND CARE JOHN ROE Start: 01-01-2018 INCENTIVE SPIROMETRY RT JOHN AMES Start: 01-01-2018 INCENTIVE SPIROMETRY RT JOHN AMES Start: 01-01-2018 Cholangiography&/guerrero creatog fabien ntraop rs&i JOHN AMES Start: 01-01-2018 SURGICAL PATHOLOGY RUSTY AMES Start: 01-01-2018 BEDREST JOHN ROE Start: 01-01-2018 Continuous pulse oximetry JOHN AMES Start: 01-01-2018 ENCOURAGE DEEP BREAT EDWARD AND COUGHING JOHN AMES Start: 01-01-2018 INCENTIVE SPIROMETRY RT JOHN AMES Start: 01-01-2018 INITIATE OXYGEN THER APY PROTOCOL JOHN AMES Start: 01-01-2018 NEURO/VASCULAR CHECKS S KENTON AMES Start: 01-01-2018 NOTIFY PHYSICIAN (SPECIFY) JOHN AMES Start: 01-01-2018 NURSING COMMUNICATION S KENTON AMES Start: 01-01-2018 VITAL SIGNS JOHN ROE Start: 01-01-2018 SURGICAL PATHOLOGY RUSTY AMES Start: 01-01-2018 INITIATE OXYGEN THER APY PROTOCOL JOHN AMES Start: 01-01-2018 Blood count complete auto&auto difrntl wbc JOHN AMES Start: 01-01-2018 Blood count complete automated JOHN AMES Start: 01-01-2018 INTAKE AND OUTPUT BATOOL AMES Start: 12-31-2017 TREATMENT CONSENT BATOOL AMES Start: 12-31-2017 INITIATE OXYGEN THER APY PROTOCOL JOHN AMES Start: 12-31-2017 Blood count complete auto&auto difrntl wbc JOHN AMES Start: 12-31-2017 Blood count complete automated JOHN AMES Start: 12-31-2017 INTAKE AND OUTPUT BATOOL AMES Start: 12-30-2017 SALINE LOCK IV JOHN AMES Start: 12-30-2017 INITIATE OXYGEN THER APY PROTOCOL JOHN AMES Start: 12-30-2017 Blood count complete auto&auto difrntl wbc JOHN AMES Start: 12-30-2017 Blood count complete automated JOHN BARTHOLOMEWWI Start: 12-30-2017 INTAKE AND OUTPUT BATOOL AMES Start: 12-29-2017 NURSING COMMUNICATION S KENTON AMES Start: 12-29-2017 TREATMENT CONSENT BATOOL AMES Start: 12-29-2017 TRANSFER PATIENT KATIE AMES Start: 12-29-2017 FLUORO FOR SURGICAL PROCEDURES JOHN AMES Start: 12-29-2017 VERIFY INFORMED CONSENT JOHN AMES Start: 12-29-2017 Us abdominal real ti me w/image limited JOHN AMES Start: 12-29-2017 INITIATE OXYGEN THER APY PROTOCOL JOHN AMES Start: 12-29-2017 Blood count complete auto&auto difrntl wbc JOHN AMES Start: 12-29-2017 Blood count complete automated JOHN AMES Start: 12-29-2017 INTAKE AND OUTPUT BATOOL AMES Start: 12-29-2017 IP CONSULT TO GENERA L SURGERY JOHN AMES Start: 12-29-2017 IP CONSULT TO GI KATIE AMES Start: 12-29-2017 NOTIFY PHYSICIAN (SPECIFY) JOHN AMES Start: 12-29-2017 INITIATE OXYGEN THER APY PROTOCOL JOHN AMES Start: 12-29-2017 REASON FOR NO MECHAN ICAL VTE PROPHYLAXIS JOHN AMES Start: 12-29-2017 TOBACCO CESSATION EDUCATION JOHNSHAWNA AMES Start: 12-29-2017 VITAL SIGNS JOHN ROE Start: 12-29-2017 PATIENT STATUS (DIRECT) JOHN AMES Start: 12-29-2017 Ct abdomen & pelvis w/contrast material JOHN AMES Start: 12-28-2017 Assay of amylase KATIE AN HUI Start: 12-28-2017 Microscopic urinalysis JOHN AMES Start: 12-28-2017 Urnls dip stick/tabl et rgnt auto w/o microscopy JOHN AMES Start: 12-28-2017 Assay of lipase LUI N HUI Start: 12-28-2017 Blood count complete auto&auto difrntl wbc JOHN AMES Start: 12-28-2017 Comprehensive metabo lic panel JOHN AMES Start: 12-28-2017 Prothrombin time KATIE AN HUI Start: 12-28-2017 INSERT PERIPHERAL IV LAMB TIKA AMES Start: 09-16-2014 Mammography Raffaele Sesay PA-C Work Phone: Plan of Treatment Date Care Activity Detail Author Start: 01-10-2024 DIABETES SCREEN DIABETES SCREEN [facility] Start: 05-29-2023 HPV TESTING HPV TESTING [facility] Start: 05-29-2023 PAP TESTING PAP TESTING [facility] Start: 11-11-2021 Influenza vaccination INFLUENZA (#1) [facility] Start: 10-13-2021 End: 10-27-2021 SARS-CoV-2 (COVID-19) RNA [Presence] in Respiratory specimen by JULIAN with probe detection [facility] Work Phone: Immunizations Immunization Date Immunization Notes Care Provider Cheng choudhary 01-20-2009 novel [id number], all formulations Raffaele Sesay PA-C Work Phone: [facility] Work Phone: Payers Date Payer Category Payer Medicaid [facility] MEDICAID [facility] MEDICAID [id number] 2020-Present [phone] [address] [place] [address] Medicaid [id number] 2020 Medicaid UHC MEDICAID [employer] MEDICAID [id number] 2020-Present [phone] [address] [place] [address] Medicaid [id number] 2020 Medicaid [id number] 2017 Medicaid ACUTE 1970 Unknown [id number] Social History Date Type Detail Facility Start: 08-12-2020 Tobacco smoking stat RUSTIS Smokes tobacco daily [facility] Work Phone: History of tobacco use [facility] Sm[facility] Start: 10-13-2021 Alcohol intake Current drinke r of alcohol (finding) [facility] Start: 1970 Sex Assigned At Not on file C [facility] Start: 10-03-2021 End: 10-13-2021 Exposure to SARS-CoV-2 (event) Not sure [facility] Work Phone: Start: 08-12-2020 Cigarettes smoked current (pack per day) - Reported 1 [facility] Start: 08-12-2020 Tobacco use and exposure Smokeless tobacco non-user [facility] Clinical Notes 01-11-2005 to 10-05-2022 Telephone Encounter - Ani Rothmanerica BRANCH LOGISTICS SUPERVISOR - 10/16/2021 9:55 AM EDTTelephone Encounter - Malaika Stahl BRANCH LOGISTICS SUPERVISOR - 10/14/2021 9:34 AM EDTTelephone Encounter - Nilda Raquelmukeshannette BRANCH LOGISTICS SUPERVISOR - 10/13/2021 3:31 PM EDT Note Date & Type Note Facility 10-05-2022 Note Patient Outreach (IN [facility]) EDWIN HELTON ([id number]) 1970 F Date Time Provider Department 10/05/22 SALO KENDALL During your visit today, we recorded the following information about you: Allergies As of Date: 10/05/2022 (No Known Allergies) Date Reviewed: 10/13/2021 Reviewed by: Natalie Grove - Fully Assessed Visit Diagnosis:Encounter for screening mammogram for breast cancer [Z12.31] Order(s):[facility] SCREENING [[id number]] Order #: [id number] FUTURE Prescriptions as of 10/10/2022 - benzonatate (TESSALON PERLES) 100 mg capsule Take 2 capsules by mouth three times daily as needed. - fluticasone (FLONASE) 50 mcg/actuation nasal spray Use 2 Sprays in each nostril once daily. Rinse mouth after use. - Multivitamin (DAILY MULTIPLE) ORAL Tab Take one(1) tablet daily. 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] 01/11/2005 Malignant neoplasm of cervix uteri, unspecified*01/11/2005 12/21/2009 DIS MAGNESIUM METABOLISM [E83.40] 01/17/2005 DYSURIA [R30.0] 01/21/2005 Cervical cancer [C53.9] 12/21/2009 Dyspareunia [[id number]] 04/30/2013 Obesity, Class III, BMI 40-49.9 (morbid obesity*07/12/2017 Abdominal pain [R10.9] 08/12/2020 Nicotine use disorder, F17.2 [F17.200] 08/13/2020 Obesity, Class II, BMI 35-39.9 [E66.9] 08/13/2020 Encounter Status:Closed by RICHARD FELIZUSELo on 10/10/22 [facility] 10-20-2021 Note Patient Outreach (IN [facility]) EDWIN HELTON ([id number]) 1970 F Date Time Provider Department 10/20/21 SALO KENDALL During your visit today, we recorded the following information about you: Allergies As of Date: 10/20/2021 (No Known Allergies) Date Reviewed: 10/13/2021 Reviewed by: Natalie Grove - Fully Assessed Visit Diagnosis:Encounter for screening mammogram for breast cancer [Z12.31] Order(s):[facility] SCREENING [[id number]] Order #: [id number] FUTURE Prescriptions as of 10/25/2021 - benzonatate (TESSALON PERLES) 100 mg capsule Take 2 capsules by mouth three times daily as needed. - fluticasone (FLONASE) 50 mcg/actuation nasal spray Use 2 Sprays in each nostril once daily. Rinse mouth after use. - Multivitamin (DAILY MULTIPLE) ORAL Tab Take one(1) tablet daily. 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] 01/11/2005 Malignant neoplasm of cervix uteri, unspecified*01/11/2005 12/21/2009 DIS MAGNESIUM METABOLISM [E83.40] 01/17/2005 DYSURIA [R30.0] 01/21/2005 Cervical cancer [C53.9] 12/21/2009 Dyspareunia [[id number]] 04/30/2013 Obesity, Class III, BMI 40-49.9 (morbid obesity*07/12/2017 Abdominal pain [R10.9] 08/12/2020 Nicotine use disorder, F17.2 [F17.200] 08/13/2020 Obesity, Class II, BMI 35-39.9 [E66.9] 08/13/2020 Encounter Status:Closed by JAMES FELIZ on 10/25/21 [facility] 10-16-2021 Miscellaneous Notes Left message for patient with results and recommendations.Ani Cruz LPN Phone call placed x2 numbers brief message left on contacts cell number. When patient calls in please review recent positive Covid testing results, with xray. Malaika Barfield LPN TC to Pt. Unable to LM due to the mailbox is not set up. Will try again later. Nilda Vargas LPN Let patient know her hip xrays were normal. Recommend tylenol/ibuprofen as needed. Follow up with pcp if not improving. documented in this encounter [facility] 10-14-2021 Nurse Note Atempted to call pt voice mail full can not leave a message. It appears she was seen in urgent care yesterday was tested for covid and it came back positive. They have also been unable to reach her. Daughter is listed as a contact. Left message on her phone that we have been trying to reach mom . To have her call office. Appointment with us today is for a physical. Per Bettye can not be completed virtual. Appt should be cancelled and remade when pt is well. documented in this encounter [facility] 10-13-2021 Note HNO ID: [id number] Author: Raffaele Sesay PA-C Service: ? Author Type: Physician Micro Lab Analyst Type: Progress Notes Filed: 10/13/2021 4:37 PM Note Text: This note was created using [employer]. Subjective Edwin Helton is a 51 year old female. HPI Patient presents with congestion, headache, dizziness fever and cough times a week. She has had some diarrhea off and on as well. No chest pain or shortness of breath. No vomiting. She denies OTC meds. She denies any sick contacts. She is not vaccinated for COVID. She thinks she had COVID in the beginning of the pandemic. Patient also has been having left hip pain over the past month or so. She feels like sometimes she gets a nerve pinched in there and then her leg will hurt. Not hurting right now. Sometimes is worse with weightbearing. No numbness or tingling. No back pain. Review of Systems Constitutional: Positive for fatigue and fever. HENT: Positive for congestion, postnasal drip, rhinorrhea and sore throat. Negative for ear pain, sinus pressure and sinus pain. Respiratory: Positive for cough. Negative for shortness of breath. Cardiovascular: Negative. Gastrointestinal: Positive for diarrhea. Negative for abdominal pain, nausea and vomiting. Genitourinary: Negative. Musculoskeletal: Positive for myalgias. Neurological: Positive for dizziness and headaches. All other systems reviewed and are negative. PAST MEDICAL HISTORY Diagnosis Date - Abscess vaginal - Anxiety disorder - Malignant neoplasm of cervix uteri, unspecified site 2004 - Menopausal and postmenopausal disorder 2004 Current Outpatient Medications Medication Sig Dispense Refill - Multivitamin (DAILY MULTIPLE) ORAL Tab Take one(1) tablet daily. 0 - benzonatate (TESSALON PERLES) 100 mg capsule Take 2 capsules by mouth three times daily as needed. 30 capsule 0 - fluticasone (FLONASE) 50 mcg/actuation nasal spray Use 2 Sprays in each nostril once daily. Rinse mouth after use. 1 Each 0 No current facility-administered medications for this visit. PAST SURGICAL HISTORY Procedure Laterality Date - DELIVERY ONLY 1991 - CHOLECYSTECTOMY 2018 - CONIZATION CERVIX W/WO DANDC RPR ELTRD EXC - PAST SURGICAL HISTORY OF 2005 radiation and chemo FAMILY HISTORY Problem Relation Age of Onset - Breast Cancer Mother at age 41 - other (ovarian cancer) Maternal Grandmother - other (Other) Other No other history of breast of gynecologic malignancies other than listed above; has two sisters who are healthy. - Cancer Maternal Grandfather unsure of the type, but passed from it. Social History Tobacco Use - Smoking status: Current Every Day Smoker Packs/day: 1.00 Years: 18.00 Pack years: 18.00 Types: Cigarettes - Smokeless tobacco: Never Used Substance Use Topics - Alcohol use: Yes Comment: occasionally - Drug use: Yes Frequency: 1.0 times per week Types: Marijuana Objective BP 132/78 Pulse 100 Temp 36.4 ?C (97.5 ?F) Resp 16 Wt 103 kg (227 lb) SpO2 98% BMI 40.21 kg/m? Physical Exam Vitals reviewed. Constitutional: Appearance: Normal appearance. HENT: Head: Normocephalic and atraumatic. Right Ear: Ear canal and external ear normal. Left Ear: Ear canal and external ear normal. Ears: Comments: Serous effusion bilateral middle ear Cardiovascular: Rate and Rhythm: Normal rate and regular rhythm. Heart sounds: Normal heart sounds. Pulmonary: Effort: Pulmonary effort is normal. Breath sounds: Normal breath sounds. Musculoskeletal: Cervical back: Neck supple. Comments: No tenderness on palpation of the hip. Minimal pain on internal rotation. Normal range of motion otherwise. Normal strength in the leg. No swelling. Skin: General: Skin is warm and dry. Neurological: General: No focal deficit present. Mental Status: She is alert and oriented to person, place, and time. Assessment and Plan ASSESSMENT/PLAN: 1. Viral illness - ICD9: 079.99, ICD10: B34.9 (primary diagnosis) - Discussed viral etiology and rationale for treatment. - Symptomatic treatment with prn analgesia - Supportive care with fluids and rest - Follow up in 3-5 days if symptoms persist or sooner if worsening of symptoms - 2019 CORONAVIRUS 2. Left hip pain - ICD9: 719.45, ICD10: M25.552 xrays negative. Follow up with pcp if not improving. - XR HIP GENERAL 3V PELV/AP/LAT LEFT Raffaele Sesay PA-C [facility] 10-13-2021 History of Presen t illness Narrative This note was created using [employer]. Genevieve Helton is a 51 year old female. HPI Patient presents with congestion, headache, dizziness fever and cough times a week. She has had some diarrhea off and on as well. No chest pain or shortness of breath. No vomiting. She denies OTC meds. She denies any sick contacts. She is not vaccinated for COVID. She thinks she had COVID in the beginning of the pandemic. Patient also has been having left hip pain over the past month or so. She feels like sometimes she gets a nerve pinched in there and then her leg will hurt. Not hurting right now. Sometimes is worse with weightbearing. No numbness or tingling. No back pain. Review of Systems Constitutional: Positive for fatigue and fever. HENT: Positive for congestion, postnasal drip, rhinorrhea and sore throat. Negative for ear pain, sinus pressure and sinus pain. Respiratory: Positive for cough. Negative for shortness of breath. Cardiovascular: Negative. Gastrointestinal: Positive for diarrhea. Negative for abdominal pain, nausea and vomiting. Genitourinary: Negative. Musculoskeletal: Positive for myalgias. Neurological: Positive for dizziness and headaches. All other systems reviewed and are negative. PAST MEDICAL HISTORY Diagnosis Date Abscess vaginal Anxiety disorder Malignant neoplasm of cervix uteri, unspecified site 2004 Menopausal and postmenopausal disorder 2004 Current Outpatient Medications Medication Sig Dispense Refill Multivitamin (DAILY MULTIPLE) ORAL Tab Take one(1) tablet daily. 0 benzonatate (TESSALON PERLES) 100 mg capsule Take 2 capsules by mouth three times daily as needed. 30 capsule 0 fluticasone (FLONASE) 50 mcg/actuation nasal spray Use 2 Sprays in each nostril once daily. Rinse mouth after use. 1 Each 0 No current facility-administered medications for this visit. PAST SURGICAL HISTORY Procedure Laterality Date DELIVERY ONLY 1991 CHOLECYSTECTOMY 2017 CONIZATION CERVIX W/WO D&C RPR ELTRD EXC PAST SURGICAL HISTORY OF 2004 radiation and chemo FAMILY HISTORY Problem Relation Age of Onset Breast Cancer Mother at age 41 other (ovarian cancer) Maternal Grandmother other (Other) Other No other history of breast of gynecologic malignancies other than listed above; has two sisters who are healthy. Cancer Maternal Grandfather unsure of the type, but passed from it. Social History Tobacco Use Smoking status: Current Every Day Smoker Packs/day: 1.00 Years: 18.00 Pack years: 18.00 Types: Cigarettes Smokeless tobacco: Never Used Substance Use Topics Alcohol use: Yes Comment: occasionally Drug use: Yes Frequency: 1.0 times per week Types: Marijuana Objective BP 132/78 Pulse 100 Temp 36.4 C (97.5 F) Resp 16 Wt 103 kg (227 lb) SpO2 98% BMI 40.21 kg/m Physical Exam Vitals reviewed. Constitutional: Appearance: Normal appearance. HENT: Head: Normocephalic and atraumatic. Right Ear: Ear canal and external ear normal. Left Ear: Ear canal and external ear normal. Ears: Comments: Serous effusion bilateral middle ear Cardiovascular: Rate and Rhythm: Normal rate and regular rhythm. Heart sounds: Normal heart sounds. Pulmonary: Effort: Pulmonary effort is normal. Breath sounds: Normal breath sounds. Musculoskeletal: Cervical back: Neck supple. Comments: No tenderness on palpation of the hip. Minimal pain on internal rotation. Normal range of motion otherwise. Normal strength in the leg. No swelling. Skin: General: Skin is warm and dry. Neurological: General: No focal deficit present. Mental Status: She is alert and oriented to person, place, and time. Assessment and Plan ASSESSMENT/PLAN: 1. Viral illness - ICD9: 079.99, ICD10: B34.9 (primary diagnosis) - Discussed viral etiology and rationale for treatment. - Symptomatic treatment with prn analgesia - Supportive care with fluids and rest - Follow up in 3-5 days if symptoms persist or sooner if worsening of symptoms - 2019 CORONAVIRUS 2. Left hip pain - ICD9: 719.45, ICD10: M25.552 xrays negative. Follow up with pcp if not improving. - XR HIP GENERAL 3V PELV/AP/LAT LEFT Raffaele Sesay PA-C documented in this encounter [facility] [place] 10-13-2021 Note HNO ID: [id number] Author: RT Kimberly(R) Service: Nuclear Medicine Author Type: Technologist Type: Progress Notes Filed: 10/13/2021 2:18 PM Note Text: Radiology Service Progress Note PATIENT NAME: Edwin Helton DATE OF SERVICE: October 13, 2021 TIME: 2:10 PM PATIENT IDENTITY VERIFICATION COMPLETED USING TWO (2) IDENTIFIERS: Name and Date of confirmed by patient verbally. FALL SCREENING: Has the patient had 2 falls in the last year or 1 fall with injury or currently using an Ambulatory Assistive Device (Walker, Cane, Wheelchair, Crutches, etc.)? No PATIENT GENDER DATA: Female. status: : No status: NO. PATIENT RELEVANT IMPLANT DATA REVIEWED: Not Applicable RADIOLOGY DEPARTMENT: General X-ray: Exam(s) Completed: Pelvis X-Ray: Pelvis with Hip Left PERIPHERAL IV DATA: Not applicable SIGNED BY: RT Kimberly(R) October 13, 2021 2:10 PM [facility] 08-13-2020 Note HNO ID: [id number] Author: ALANNA Grover Service: Care Management Author Type: Painter And Decorator Apprentice Type: Care Mgt Progress Note Filed: 08/13/2020 2:04 PM Note Text: This patient has been screened for Care Management Transitional Planning Services. At this time, it does not appear this patient will require transition planning services. Should this change, and the patient require transition planning services during this admission, please call [phone]. ALANNA Grover August 13, 2020 2:04 PM [facility] 08-13-2020 Note HNO ID: [id number] Author: Enzo Viveros APRN.EMERGENCY DEPT TECH Service: Nursing Author Type: Nurse Laminating Machine Offbearer Type: Anesthesia Procedure Notes Filed: 08/13/2020 12:35 PM Note Text: ANESTHESIOLOGY PROCEDURE NOTE Airway General Information Procedure Start Time/Medication Administration: 08/13/2020 12:23 PM Patient location during procedure: OR Timeout Performed Pre-procedure: timeout performed Consent Obtained: Yes Patient identity confirmed: arm band and patient Staffing Anesthesiologist: Samanta Rios MD EMERGENCY DEPT TECH: Enzo Viveros APRN.EMERGENCY DEPT TECH Performed by: EMERGENCY DEPT TECH Indications and Patient Condition Preoxygenated: yes Patient position: sniffing Manual In-Line Stabilization: No Difficult Mask: No Indications for airway management: anesthesia anesthesia circuit Method: asleep Cricoid Pressure: No Final Airway Details Final airway type: supraglottic airway Number of attempts at approach: 1 Final Supraglottic Airway: i-gel Size 5 Seal Adequate: yes Failed airway: no Unrecognized esophageal intubation: no Airway not difficult SIGNATURE: Enzo Viveros APRN.CRNA PATIENT NAME: Edwin Helton DATE: August 13, 2020 TIME: 12:34 PM CSN: [id number] [facility] 08-13-2020 Note HNO ID: [id number] Author: Jaymie Gonzalez RN Service: Nursing Author Type: Registered Nurse Type: Nursing Progress Note Filed: 08/13/2020 10:50 AM Note Text: Pt came with upper denture to [facility]. Upper denture given to 5100 staff. [facility] 08-13-2020 Note HNO ID: [id number] Author: Francy Mcintosh MD Service: Gynecology Oncology Author Type: Resident Type: Progress Notes Filed: 08/13/2020 6:57 AM Note Text: Attestation signed by Edmar Wesley MD at 08/13/2020 9:26 AM [facility] STAFF PHYSICIAN NOTE OF PERSONAL INVOLVEMENT IN CARE I have reviewed the progress note obtained and documented by the resident and I personally participated in the castelan components. I have discussed the case and management of the patient's care. The following comments revise or confirm relevant castelan components of their note. IMPRESSION: 50 year old female with history of IIIB SCC of cervix admitted with possible pelvic abscess versus fluid collection, abdominal pain. PLAN: * # Pelvic abscess: Consented for EUA today. NPO/IVF. Afebrile overnight, draining. Monitor off IV antibiotics for now. # Dispo: Possible home this PM. Plan of care discussed with Provider, RN, Patient CARE COORDINATION: The majority of the visit was spent counseling and/or coordinating care for the patient. Mkia-yi-fkwu time was 15 minutes SIGNATURE: Edmar Wesley MD DATE of SERVICE: August 13, 2020 TIME of SERVICE: 9:23 AM PROGRESS NOTE - GYNECOLOGY ONCOLOGY SERVICE DATE: 08/13/2020 SERVICE TIME: 6:17 AM ATTENDING PHYSICIAN: Edmar Wesley MD Subjective INTERVAL HISTORY OF PRESENT ILLNESS: Edwin Helton states that she was able to get some good sleep overnight. She endorses that the motrin she received greatly improved the pain that she was feeling. She states that she did notice some discharge overnight that malodorous that she saved to show someone. It is appears brownish in nature and is small amount. Denies any fevers, chills, abdomianl pain, myalgias overnight REVIEW OF SYSTEMS: Edwin feels well. No abdominal pain, nausea, vomiting, diarrhea, or constipation. No dysuria, gross hematuria, urinary frequency, or urinary urgency. No shortness of breath, cough, or chest pain. Objective PHYSICAL EXAM: BP 138/86 Pulse 101 Temp (Src) 98.4 (Oral) Resp 20 Ht 5' 3 (1.60m) Wt 220 lb (99.8kg) SpO2 95% BMI 38.98 kg/(m2). O2 Therapy: Room Air GENERAL: Alert, no distress, cooperative LUNGS: Lungs clear to auscultation. Good diaphragmatic excursion. CARDIAC: Normal S1 and S2; no rubs, murmurs, or gallops ABDOMEN: Abdomen soft, non-tender, BS normal, No masses or organomegaly EXTREMETIES: No calf tenderness DATA: Diagnostic tests reviewed for today's visit: Most recent labs Assessment/Plan 50 year old with stage IIIb SCC of cervix presenting with malodorous discharge and abdominal pain. 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 Prather) but was lost to follow up in 2008 -Most recent pap smear: ASCUS HPV positive in 2019 but patient also lost to follow up at that time #Abdominal pain and vaginal discharge -On CT scan there was noted to be 2.7x3.0 cm gas/debris fuid collection in the pelvis that was read as suspicious for pelvic abscess -Patient reports NO hx of hysterectomy -No signs/symptoms of infection/sepsis at this time or overnight -Remains afebrile -WBC 13.7->12.5 this AM -Antibiotics continued to be held as remains afebrile, consider Zosyn if febrile -Paitent was made NPO at midnight to undergo exam under anesthesia, possible IANDD, possible dilation and curettage -Add on case order in, to be discussed with OR this AM -Needs consented -Pain well controlled overnight with motrin and tylenol #History of VAIN I - diagnosed in 2008 - has been lost to follow up since 2019 ? #Tobacco use - smokes /2-1 ppd - encourage cessation ? #DVT ppx - SCDs ordered #Dispo -To home likely today following the procedure SIGNATURE: Garrett Gutiérrez DO PATIENT NAME: Edwin Helton DATE: August 13, 2020 TIME: 6:17 AM PAGER/CONTACT #: [phone] Senior Note: I evaluated the patient and agree with note above. Was NPO at midnight for anticipated surgery. To OR for EUA, possible IANDD, and possible DANDC. Remains afebrile, continue to hold antibiotics. Francy Mcintosh, Senior Information Security Architect PGY-3 PG #: [id number] 08/13/2020 6:56 AM [facility] 07-16-2020 Note . MICRO - Microbiology PROCEDURE: Urine Culture [*1] SOURCE: Urine BODY SITE: COLLECTED DATE/TIME: 07/14/2020 05:56 EDT RECEIVED DATE/TIME: 07/14/2020 14:30 EDT START DATE/TIME: 07/14/2020 14:30 EDT FREE TEXT SOURCE: FINAL REPORTS Final Report [] Verified Date/Time/Personnel: 07/16/2020 09:19 EDT >100,000 organisms per mL Escherichia coli PRELIMINARY REPORTS Preliminary Report [] Verified Date/Time/Personnel: 07/15/2020 11:53 EDT >100,000 organisms per mL Escherichia coli LA to follow SUSCEPTIBILITY RESULTS Escherichia coli Antibiotic LA Dilut LA Inter Ampicillin >16 Resistant Ampicillin/ >16/8 Resistant Sulbactam Aztreonam <=4 Susceptible Cefazolin 8 Susceptible Ciprofloxacin <=0.25 Susceptible Ertapenem <=0.5 Susceptible Gentamicin <=2 Susceptible Imipenem <=1 Susceptible Levofloxacin <=0.5 Susceptible Meropenem <=1 Susceptible Nitrofurantoin <=32 Susceptible Piperacillin/ <=8 Susceptible Tazobactam Trimethoprim/ >2/38 Resistant Sulfa Performing Locations *1: This test was performed at: [facility], [facility] [address] [place] [address], [facility] , [facility] ([place]) documented as of this encounter (statuses as of 10/13/2021) [place] [id number] History of Past illness Narrative* Problem Noted Date Resolved Date Malignant neoplasm of cervix uteri, unspecified site 01/11/2005 12/21/2009 documented as of this encounter (statuses as of 10/16/2021) [address] History of Past illness Narrative* Problem Noted Date Resolved Date Malignant neoplasm of cervix uteri, unspecified site 01/11/2005 12/21/2009 documented as of this encounter (statuses as of 10/20/2021) [address] History of Past illness Narrative* Problem Noted Date Resolved Date Malignant neoplasm of cervix uteri, unspecified site 01/11/2005 12/21/2009 documented as of this encounter (statuses as of 10/25/2021) [facility] Diagnosis Viral illness- Primary Unspecified viral infection, in conditions classified elsewhere and of unspecified site Left hip pain Pain in joint, pelvic region and thigh documented [facility] Diagnosis APPOINTMENT CANCELLED- Primary documented in this [facility] Diagnosis Encounter for screening mammogram for breast cancer documented in this encounter [facility] for referral (narrative)* Diagnostic Procedure Only (Urgent) - Closed Specialty Diagnoses / Procedures Referred By Contac t Referred To Contact XR IMAGING Diagnoses Left hip pain Procedures XR HIP GENERAL 3V PELV/AP/LAT LEFT RADEX HIP UNILATERAL WITH PELVIS 2-3 VIEWS Raffaele Sesay PA-C [address] [place] [address] Xr Imaging Referral ID Status Reason Start Date Expiration Date V isits Requested Visits Authorized [id number] Closed Auto-Generate d Referral 10/13/2021 11/12/2022 1 1 [facility] Diagnostic Procedure Only (Routine) - Pending Review Specialty Diagnoses / Procedures Referred By Peyman jordan Referred To Contact [facility] IMAGING Diagnoses Encounter for screening mammogram for breast cancer Procedures KYLEE SCREENING SCREENING MAMMOGRAPHY BI 2-VIEW BREAST INC CAD Salo Kendall DO [address] [place] [address] [facility] [address] [place] [address] Referral ID Status Reason Start Date Expiration Date Visits Requested Visits Authorized [id number] Pending Review Auto-Generat ed Referral 10/20/2021 11/19/2022 1 1 [facility] Summary Purpose Family History No Family History Records FoundNo Family History Records FoundNo Family History Records FoundNo Family History Records FoundNo Family History Records Found Advance Directives No Advanced Directives Records FoundDocuments on File Type Date Recorded 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 Instructor Hairspring Expl anation Advance Directive(s) 01/09/2021 4:38 PM Advance Directive(s) 08/13/2020 11:13 AM Advance Directive(s) 08/12/2020 4:26 AM Health Concerns Infection Onset Date Last Indicated Resolved Time COVID-19 Rule-Out 10/13/2021 10/13/2021 Infection Onset Date Last Indicated Resolved Time COVID-19 Rule-Out 10/13/2021 10/13/2021 10/14/2021 1:12 AM EDT COVID-19 Confirmed 10/13/2021 10/13/2021 Infection Onset Date Last Indicated Resolved Time COVID-19 Confirmed 10/13/2021 10/13/2021 Infection Onset Date Last Indicated Resolved Time COVID-19 Confirmed 10/13/2021 10/13/2021 Additional Source Comments INFORMATION SOURCE (unrecogn ized section and content) DATE CREATED AUTHOR AUTHOR'S ORGANIZ ATION 02/04/2018 [facility] DATE CREATED AUTHOR AUTHOR'S ORGANIZ ATION 07/16/2020 [facility] ([place]) DATE CREATED AUTHOR AUTHOR'S ORGANIZ ATION 03/30/2021 [facility] DATE CREATED AUTHOR AUTHOR'S ORGANIZ ATION 10/10/2022 [facility] Source Comments (unrecognize d section and content) In the event this informatio n is protected by the Federal Confidentiality of Alcohol and Drug Abuse Patient Records regulations: The Federal rules restrict any use of the information to criminally investigate or prosecute any alcohol or drug abuse patient.[facility] the event this information is protected by the Federal Confidentiality of Alcohol and Drug Abuse Patient Records regulations: The Federal rules restrict any use of the information to criminally investigate or prosecute any alcohol or drug abuse patient.[facility] the event this information is protected by the Federal Confidentiality of Alcohol and Drug Abuse Patient Records regulations: The Federal rules restrict any use of the information to criminally investigate or prosecute any alcohol or drug abuse patient.[facility] the event this information is protected by the Federal Confidentiality of Alcohol and Drug Abuse Patient Records regulations: The Federal rules restrict any use of the information to criminally investigate or prosecute any alcohol or drug abuse patient.[facility] Reason for Visit (unrecogniz ed section and content) Reason Comments Results Care Teams (unrecognized sec tion and content) Billboard Poster Helper Relationship Specialty Start Date End Date Salo Kendall, DO [address], [place] [id number] PCP - General Family Practice 10/13/21 Billboard Poster Helper Relationship Specialty Start Date End Date Salo Kendall, DO [address] [place], [place] [address] PCP - General Family Practice 10/13/21 Billboard Poster Helper Relationship Specialty Start Date End Date Salo Kendall, DO [address] [place], [place] [id number] PCP - General Family Practice 10/13/21 FOR RECORDS PERTAINING TO PATIENTS WHO ARE OR HAVE BEEN ENROLLED IN A CHEMICAL DEPENDENCY/SUBSTANCEABUSE PROGRAM, SOME INFORMATION MAY BE OMITTED. This clinical summary was aggregated from multiple sources. Caution should be exercised in using it in the provision of clinical care. This summary normalizes information from multiple sources, and as a consequence, information in this document may materially change the coding, format and clinical context of patient data. In addition, data may be omitted in some cases. CLINICAL DECISIONS SHOULD BE BASED ON THE PRIMARY CLINICAL RECORDS. [facility] [employer] [facility]. provides no warranty or guarantee of the accuracy or completeness of information in this document.
[2023-04-21 19:24] LABS: White Blood Cells >100 SEEN /hpf (0-5)
[2023-04-21 19:25] LABS: Squamous Epithelial Cells - UA 0-5 SEEN /hpf (5-10)
[2023-04-21 19:30] LABS: Differential Comment SCANNED
[2023-04-21] MEDS: Ceftriaxone 1 GM/50 ML BAG IV (20:09)
[2023-04-21 20:28] LABS: Lactic Acid 0.9 mmol/L (0.4-1.9)
[2023-04-21 20:37] VITALS: BP 128/67; PULSE 104; RESP 16; TEMP 37.2; O2SAT 98
[2023-04-24 13:40] LABS: Pathologist Review Reviewed
== END 2023-04-21 21:15 | disposition home or self-care (01) ==
PROVIDERS: Physician Assistant; Emergency Provider Emergency Medicine; PCP Student in an Organized Health Care Education/Training Program; Visit Provider Emergency Medicine
DX: A41.9 Sepsis, unspecified organism (principal); R51.9 Headache, unspecified; J45.909 Unspecified asthma, uncomplicated; N39.0 Urinary tract infection, site not specified; J06.9 Acute upper respiratory infection, unspecified; F17.210 Nicotine dependence, cigarettes, uncomplicated; R39.15 Urgency of urination; R30.0 Dysuria
CPT/HCPCS: 71045; 80048; 81001; 83605; 85025; 87040; 87077; 87086; 87088; 87186; 87631; 94760; 96361; 96365; 96375; 99282; J7030

== ENCOUNTER 2023-08-14 14:45 | Emergency (ER) | payer SELFPAY ==
[2023-08-14 14:45] VITALS: BP 153/99; PULSE 99; RESP 18; TEMP 37.1; O2SAT 98; BMI 44.1
[2023-08-14 15:45] LABS: Absolute Lymphocyte Count 2.15 X10^3/uL (0.83-4.51); Absolute Neutrophil Count 5.3 X10^3/uL (2.0-7.7); Basophil# 0.04 X10^3/uL; Basophil% 0.5 % (0-1); Eosinophil# 0.36 X10^3/uL; Eosinophils% 4.3 % (0-5); Hematocrit 39.5 % (37-47); Hemoglobin 12.3 g/dL (12.0-15.0); Lymphocyte # 2.15 X10^3/ul (0.83-4.51); Lymphocyte % 25.8 % (19-41); Mean Corp Hgb Conc 31.1 g/dL (32-36); Mean Corpuscular Hgb 27.1 pg (27.0-32.0); Mean Platelet Vol. 9.9 fl (6.2-12.0); Monocyte# 0.48 X10^3/uL; Monocyte% 5.8 % (0-10); NRBC Flagged by Analyzer 0 % (0-5); Neutrophil # 5.25 X10^3/uL (2.7-7.7); Platelet Count 295 K/mm3 (150-450); RBC Distribution Width CV 14.6 % (11.6-14.6); RBC Distribution Width SD 47.2 fl (35.1-43.9); Red Blood Count 4.54 M/mm3 (4.2-5.4); White Blood Count 8.3 K/mm3 (4.4-11.0)
--- NOTE | 2023-08-14 15:46 | EX.ED.DYSGE1 ---
HPI History of Present Illness Chief Complaint: Complaint Informant: patient Narrative Narrative: Patient presents secondary to not being able to control her urination today. She states that she is leaking urine almost continuously. She did lift some heavy furniture last evening but does not have any back pain. She has had problems with her legs swelling for the past couple of months. She reports having 3 urinary tract infections in the last 8 months or so. She has noted some problems emptying her bladder completely. PFSH [facility] Medical History Cervical cancer Home Medications ?Medication ?Instructions ?Recorded ?Last Taken ?Type multivitamin 1 tab PO DAILY 02/13/22 Unknown History cephalexin 500 mg capsule 500 mg PO Q6 7 days #28 CAPSULES 04/21/23 Unknown Rx sulfamethoxazole 800 1 tab PO BID #6 tabs 08/14/23 Unknown Rx mg-trimethoprim 160 mg tablet (Bactrim DS) Allergy/AdvReac Type Severity Reaction Status Date / Time No Known Allergies Allergy Verified 08/14/23 14:45 Surgical History H/O: History of cholecystectomy Social History Smoking Status: Current every day smoker tobacco type: cigarettes substance use type: does not use ROS ROS ED Constitutional Constitutional ED: Denies chills or fever(s) Eyes Eyes: Denies discharge from eye(s) ENT ENT ED: Denies discharge from eye(s), rhinorrhea or sore throat Cardiovascular Cardiovascular: Denies chest pain or palpitations Respiratory/Chest Respiratory/Chest: Denies cough or dyspnea Gastrointestinal Gastrointestinal: Denies abdominal pain, diarrhea, nausea or vomiting Genitourinary Genitourinary ED: Reports other Details: Loss of urinary control. Musculoskeletal Musculoskeletal: Reports other Details: Lower extremity edema. ; Denies back pain or extremity pain Integumentary Denies Abrasions or rash Neurologic Neurologic: Denies headache(s) or weakness Psychiatric Psychiatric: Denies anxiety or depression Allergic/Immunologic Allergic/Immunologic ED: Denies lip swelling or urticaria EXAM Physical Exam Const Vital Signs: 08/14/23 14:45 08/14/23 16:45 Temperature 98.8 F Temperature Source Temporal Pulse Rate 99 92 Respiratory Rate 18 18 Blood Pressure 153/99 H 150/98 H Blood Pressure Mean 117 115 Pulse Ox 98 98 Oxygen Delivery Method Room Air Room Air Positive well nourished and well developed General Appearance ED: well developed HEENT Reports moist mucous membranes Eyes EOMs intact bilaterally Chest Wall inspection of chest normal and palpation of chest normal Resp normal respiratory effort and clear to auscultation bilaterally Cardio regular rate and regular rhythm GI non-tender Palpation: soft Extremity Extremity Narrative: 2+ edema bilateral lower extremities, symmetric. No open wounds or sign of infection. Neuro oriented x3 Neuro Narrative: Normal strength and sensation the lower extremities. Good distal pulses. Psych mental status grossly normal MDM MDM MDM Narrative Medical decision making narrative: IV line established. Labwork obtained to evaluate for leukocytosis, anemia, and electrolyte derangement. Urinalysis obtained to evaluate for infection/hematuria. Bladder scan performed to evaluate for potential overflow incontinence. History & Record Review Discussion w/independent historian: Patient Lab Data Attestation: I reviewed the patient's lab results. Labs: Laboratory Results - last 24 hr 08/14/23 08/14/23 15:37 16:17 WBC 8.3 RBC 4.54 Hgb 12.3 Hct 39.5 MCV 87.0 MCH 27.1 MCHC 31.1 L RDW Std Deviation 47.2 H RDW Coeff of Agnieszka 14.6 Plt Count 295 MPV 9.9 Immature Gran % (Auto) 0.600 Neut % (Auto) 63.0 Lymph % (Auto) 25.8 [place] % (Auto) 5.8 Eos % (Auto) 4.3 Baso % (Auto) 0.5 Absolute Neuts (auto) 5.3 Absolute Lymphs (auto) 2.15 Nucleated RBC % 0 Sodium 139 Potassium 4.1 Chloride 106 Carbon Dioxide 29.0 Anion Gap 4 L BUN 18 Creatinine 0.79 Estim Creat Clear Calc 100.83 Est GFR (MDRD) Af Amer 98 Est GFR (MDRD) Non-Af 81 BUN/Creatinine Ratio 22.7 H Glucose 114 H Calcium 8.8 B-Natriuretic Peptide 16.3 Urine Color Yellow Urine Clarity Sl. Cloudy Urine pH 6.5 Ur Specific [place] 1.020 Urine Protein 100 H Urine Glucose (UA) Normal Urine Ketones Negative Urine Occult Blood 150 H Urine Nitrite Positive H Urine Bilirubin Negative Urine Urobilinogen Normal Ur Leukocyte Esterase 100 H Urine RBC 10-25 SEEN Urine WBC 25-50 SEEN Ur Squamous Epith Cells 0-5 SEEN Urine Bacteria 2+ Urine Mucus 0 SEEN Treatment and Re-Evaluation :: CBC and chemistry studies are unremarkable. Normal renal function is noted. BNP is normal at 16. Urinalysis is positive for nitrites with 25-50 white cells and 2+ bacteria. Urine is sent for culture. Bladder scan does not reveal evidence of urinary retention. Patient be treated with a course of Bactrim. She will be referred to Dr. Milligan for follow-up. Return instructions given. Discharge Plan Triage Chief Complaint: Complaint ED Provider: Chana Paul Dx/Rx/DC Orders Clinical Impression: UTI (urinary tract infection) Instructions: ED Cystitis Female Adult Prescriptions: New sulfamethoxazole-trimethoprim [Bactrim DS] 800-160 mg tablet 1 tab PO BID Qty: 6 0RF No Action multivitamin Tablet 1 tab PO DAILY cephalexin 500 mg capsule 500 mg PO Q6 7 Days Qty: 28 0RF Primary Care Provider: Salo Dyer Referrals: Naya Milligan MD [Med Staff - Active Staff] - As soon as possible Salo Dyer DO [Primary Care Provider] - Activity Restrictions/Additional Instructions: You have been diagnosed with a urinary tract infection. You will require oral antibiotics for the next 3 days. You have been given 1 dose of antibiotic here. Please picking supervisor the antibiotics from the pharmacy as soon as possible. Print Language: Bhutanese Disposition Disposition: Home, Self Care
[2023-08-14 16:02] LABS: Anion Gap 4 (5-15); BUN 18 mg/dL (7-18); BUN/Creat Ratio 22.7 RATIO (10-20); Calcium,Total 8.8 mg/dL (8.5-10.1); Chloride 106 mmol/L (98-107); Creatinine, Serum 0.79 mg/dL (0.55-1.02); EST Glomerular Filtration Rate 81 mL/min (>60); Est Glom Filt Rate - Afr Amer 98 mL/min (>60); Estimated Creatinine Clearance 100.83 ml/min; Glucose 114 mg/dL (74-106); Potassium 4.1 mmol/L (3.5-5.1); Sodium Level 139 mmol/L (136-145)
[2023-08-14 16:03] LABS: BNP,B-Type NATRIURETIC PEPTIDE 16.3 pg/mL (0-100)
[2023-08-14 16:41] LABS: Mucous, Urine 0 SEEN /hpf (<or=2+)
[2023-08-14 16:42] LABS: Color, Urine Yellow (Yellow); Glucose, Dipstick Normal (Normal); Ketone-Dipstick Negative (Negative); Leukocyte Esterase-Dipstick 100 /ul (Negative); Nitrite-Dipstick Positive (Negative); Occult Blood-Urine 150 /ul (Negative); Protein-Dipstick 100 mg/dl (Negative); Urine Bilirubin Dipstick Negative (Negative); Urine Clarity Sl. Cloudy (Clear); Urine Urobilinogen Normal (Normal); Urine pH 6.5 (5.0 - 8.0)
[2023-08-14 16:45] VITALS: BP 150/98; PULSE 92; RESP 18; O2SAT 98
[2023-08-14 16:53] LABS: Bacteria 2+ /hpf (None Seen); Red Blood Cells-Urine 10-25 SEEN /hpf (0-5); Squamous Epithelial Cells - UA 0-5 SEEN /hpf (5-10); White Blood Cells 25-50 SEEN /hpf (0-5)
[2023-08-14] MEDS: Smz/Tmp Ds Tablet 1 TABLET PO (17:17)
[2023-08-14 18:02] VITALS: BP 124/80; PULSE 68; RESP 18; TEMP 36.6; O2SAT 98
== END 2023-08-14 18:11 | disposition home or self-care (01) ==
PROVIDERS: Emergency Provider Emergency Medicine; PCP Student in an Organized Health Care Education/Training Program; Visit Provider Emergency Medicine
DX: N39.0 Urinary tract infection, site not specified (principal); F17.210 Nicotine dependence, cigarettes, uncomplicated; R60.0 Localized edema; Z87.440 Personal history of urinary (tract) infections
CPT/HCPCS: 80048; 81001; 83880; 85025; 87077; 87086; 87088; 87186; 99282; A4216

== ENCOUNTER → 2023-09-13 | Outpatient (CLI) | payer SELFPAY ==
--- NOTE | 2023-09-13 15:22 | CT_ITS ---
STUDY: CT ABDOMEN AND PELVIS WITH AND WITHOUT CONTRAST REASON FOR EXAM: Female, 53 years old. Pelvic pain, possible fistula, history of uterine cancer RADIATION DOSAGE (If Supplied By Facility): CTDIvol = ( 24.65 ) mGy, DLP = ( 3954.84 ) mGycm TECHNIQUE: Transaxial images were obtained from the dome of the diaphragm to the symphysis pubis without oral contrast. IV 75mL Isovue-370 was administered. Sagittal and coronal images were reconstructed. Venous phase and delayed films also performed. Individualized dose optimization techniques were used for this CT. COMPARISON: None. FINDINGS: The visualized lung bases are unremarkable. The visualized portions of the heart are within normal limits. Normal liver. There are surgical clips in the gallbladder fossa consistent with a prior cholecystectomy. There are multiple benign calcified granulomata of the spleen. Normal pancreas. Normal bilateral adrenal glands. Normal right kidney. Normal left kidney. Normal visualized stomach. Normal small intestine. Normal colon. Appendix seen on coronal recon images 75 through 80 Normal abdominal aorta. Normal inferior vena cava. Normal retroperitoneum. Delayed images show accumulation of contrast within the bladder.. There is evidence of a vesicovaginal fistula with contrast in the bladder noted within the vagina best seen on axial image 97, series 5. There is also air within the bladder which is consistent with a vesicovaginal fistula as well. Normal abdominal wall. Normal osseous structures. CT/CT Abd/Pelvis W/WO Contrast IMPRESSION: On the delayed images there is evidence of a vesicovaginal fistula or contrast in the bladder seen extending into the vagina. There is also air within the bladder which unless there has been recent catheterization is also consistent with a vesicovaginal fistula. Surgical consultation recommended No free intraperitoneal fluid, air, or suspicious adenopathy, normal appendix visualized Electronically Signed: Charan Willis MD at 15:17 EDT ,
== END | disposition home or self-care (01) ==
LOC: CT 15:10
PROVIDERS: PCP Student in an Organized Health Care Education/Training Program; Referring Provider Obstetrics & Gynecology Gynecologic Oncology; Visit Provider Obstetrics & Gynecology Gynecologic Oncology
DX: N82.0 Vesicovaginal fistula (principal)
CPT/HCPCS: 74178; Q9967

== ENCOUNTER 2023-10-22 04:34 | Emergency (ER) | payer MEDICAID, SELFPAY ==
[2023-10-22] VITALS (7 sets, daily range): BP systolic 141–189; BP diastolic 09–93; PULSE 116–127; RESP 12–22; TEMP 37.2–38.8; O2SAT 92–97; BMI 45.6
--- NOTE | 2023-10-22 04:38 | ED.VIS.DYS ---
HPI History of Present Illness Chief Complaint: Shortness of Breath PFSH PFSH Medical History Cervical cancer Home Medications ?Medication ?Instructions ?Recorded ?Last Taken ?Type multivitamin 1 tab PO DAILY 02/13/22 Unknown History Allergy/AdvReac Type Severity Reaction Status Date / Time No Known Allergies Allergy Verified 10/22/23 04:39 Surgical History H/O: History of cholecystectomy Social History Smoking Status: Current every day smoker tobacco type: cigarettes substance use type: does not use EXAM Physical Exam Const Vital Signs: 10/22/23 04:35 10/22/23 04:40 10/22/23 05:39 Temperature 100.2 F H 101.9 F H Temperature Source Oral Oral Pulse Rate 125 H 127 H Respiratory Rate 22 H 22 H Respiratory Pattern Tachypnea Blood Pressure 189/09 H 169/87 H Blood Pressure Mean 69 114 Pulse Ox 97 92 Oxygen Delivery Method Room Air Room Air 10/22/23 06:00 10/22/23 06:05 10/22/23 06:58 Temperature 101.9 F H 99.4 F H Temperature Source Oral Oral Pulse Rate 126 H 122 H 122 H Respiratory Rate 20 H 12 22 H Respiratory Pattern Normal Blood Pressure 168/89 H 164/86 H Blood Pressure Mean 115 112 Pulse Ox 97 92 Oxygen Delivery Method Room Air Room Air MDM MDM MDM Narrative Medical decision making narrative: HISTORY OF PRESENT ILLNESS: 53-year-old female presents with concern for chest pain and shortness of breath. Notes cough is productive of yellow sputum. Increased shortness of breath that began. This began 3 days ago. Denies sick contacts. She endorses fever and chills. Endorses body aches. REVIEW OF SYSTEMS: Pertinent positives: Cough, fever, chest pain, shortness of breath, body aches, vaginal bleeding, dysuria and flank pain. Pertinent negatives: None PHYSICAL EXAM: Nursing triage notes reviewed, Vital signs reviewed Constitutional: please see mdm HENT: MMM Eyes: Pupils equal round and reactive to light, Extraocular muscles intact Neck: No stridor, no JVD, full neck ROM Lungs: Clear to auscultation, No wheezing or rales. No increased work of breathing, no conversational dyspnea, no accessory muscle use, no nasal flaring. No respiratory distress noted Heart: Regular rate and rhythm, No murmurs, No rubs and No gallops, 2+ distal pulses (radial, femoral, posterior tibial) in all extremities Abdomen: Soft, there is no tenderness, rigidity, rebound or guarding, no obvious peritoneal signs, no palpable pulsatile abdominal masses, no auscultated abdominal bruit : No CVAT Extremities: No edema Neuro: No focal neurological deficits, cranial nerves II through XII intact, 5/5 strength in all extremities. Intact sensation to light touch in all extremities, 2+ reflexes bilateral patella tendons. Normal gait. No ataxia. Skin: No rash or lesions noted MEDICAL DECISION MAKING: Chief Complaint: Multiple complaints External records reviewed: Imaging reviewed: CT scan of the abdomen pelvis from September 2023 shows IMPRESSION: On the delayed images there is evidence of a vesicovaginal fistula or contrast in the bladder seen extending into the vagina. There is also air within the bladder which unless there has been recent catheterization is also consistent with a vesicovaginal fistula. Surgical consultation recommended No free intraperitoneal fluid, air, or suspicious adenopathy, normal appendix visualized Factors affecting care: Asthma, tobacco abuse, cervical/uterine cancer, radiation-induced vesicovaginal fistula Social determinants of health: Tobacco abuse History obtained from others: Friend Consults: Internal medicine MDM Narrative: Patient was initially hypertensive, tachycardic, tachypneic and febrile. Exam with coarse breath sounds bilaterally, no obvious abdominal tenderness. No other focus of infection. I considered the following differential diagnosis: Sepsis, pneumonia, UTI, pyelonephritis, nephrolithiasis, COVID I obtained a broad lab and imaging workup to further elucidate etiology patient complaint specifically testicular pneumonia, COVID chest rule out purulence, CT scan abdomen pelvis rule out nephrolithiasis, pyonephritis or intra-abdominal abscess. Initially treated the patient with a 500 cc bolus given complaint of dyspnea concern for potential heart failure. I gave 50 mg IV Toradol and 500 mg of p.o. Tylenol or fever complaint of headache and bodyaches. I gave 5 mg of IV Reglan for nausea and headache control as well. Lactate, blood and urine cultures were obtained initially ALL IMAGES (IF OBTAINED) HAVE BEEN PERSONALLY REVIEWED AND INTERPRETED BY MYSELF. COVID and flu test is negative EKG with sinus tachycardia rate 124, normal axis, no intervals, no STEMI High-sensitivity troponin is negative, no evidence of myocardial ischemia CBC with leukocytosis suggestive of systemic inflammation, noted anemia, no thrombocytopenia VBG without evidence of respiratory acidosis BMP with hyponatremia, no evidence of metabolic acidosis or endorgan hypoperfusion with a normal anion gap. There is acute kidney injury Lactate is wnl indicating no end-organ hypoperfusion and/or hypoxia. BNP slightly elevated consistent with Increased ventricular stretch Urinalysis evidence of inflammation but no definitive evidence of infection CT scan abdomen pelvis shows evidence of bilateral hydro nephrosis, bladder wall thickening, stranding, signs of a vesicovaginal fistula At 0620 patient was reassessed she continued to be tachycardic and febrile. She is given broad-spectrum antibiotics (Zosyn, vancomycin) additional 2 L fluid bolus, additional 500 mg of p.o. Tylenol. 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 Patient notes she is follow with urologist Dr. Hayes at [facility]. She notes she has followed [facility] as well however she prefers [facility] given a bad experience at [facility]. Will initially reach out to [facility] to determine best disposition based on bed availability. Awaiting accepting physician [facility]. Patient signed out to a.m. physician Dr. Jackson pending Doc to Doc report and transfer. The patient and/or family, caregivers express understanding. The patient and/or family, caregivers agrees with the plan. Shared decision making: I will have a discussion with the patient and or visitors regarding risk/benefits of further testing or admission. They will be made aware of of the risk/benefits inherent in this decision they will be given the opportunity to voice understanding. Total critical care time today provided was at least 60 minutes. This excludes separately billable procedures. Critical care time (if documented) is secondary to the patient having high probability of clinically significant/life threatening deterioration in the patient's condition which required my urgent intervention. Impression: 1. Sepsis 2. PHANI 3. Vesicovaginal fistula 4. Hydronephrosis 5. Hyponatremia Dispo: Transfer This note was generated with [email or web address] dictation software. It may contain incorrect words, spelling, and punctuation that were not noted in review of the chart prior to signing. Lab Data Labs: Laboratory Results - last 24 hr 10/22/23 10/22/23 05:12 05:55 WBC 15.3 H RBC 4.02 L Hgb 10.8 L Hct 33.7 L MCV 83.8 MCH 26.9 L MCHC 32.0 RDW Std Deviation 44.5 H RDW Coeff of Agnieszka 14.5 Plt Count 268 MPV 9.9 Sodium 131 L Potassium 3.5 Chloride 98 Carbon Dioxide 29.0 Anion Gap 4 L BUN 17 Creatinine 1.71 H Estim Creat Clear Calc 47.53 Est GFR (MDRD) Af Amer 40 L Est GFR (MDRD) Non-Af 33 L BUN/Creatinine Ratio 9.9 L Glucose 158 H Lactic Acid 0.9 Calcium 8.4 L Total Bilirubin 0.50 AST 31 ALT 30 Alkaline Phosphatase 85 Troponin I High Sens 12 B-Natriuretic Peptide 136.6 H Total Protein 6.9 Albumin 2.7 L Globulin 4.2 Albumin/Globulin Ratio 0.6 L Urine Color Yellow Urine Clarity Sl. Cloudy Urine pH 8.0 Ur Specific [place] 1.010 Urine Protein 100 H Urine Glucose (UA) Normal Urine Ketones Negative Urine Occult Blood 250 H Urine Nitrite Negative Urine Bilirubin Negative Urine Urobilinogen Normal Ur Leukocyte Esterase 500 H Urine RBC 10-25 SEEN Urine WBC 10-25 SEEN Ur Squamous Epith Cells 5-10 SEEN Urine Bacteria 3+ Hyaline Casts 10-25 SEEN Fine Granular Casts 5-10 SEEN Urine Mucus 2+ ABG Data ABG results: ABG 10/22/23 05:39 Specimen Type ALPHONSE Sample Site Not entered VBG pH 7.44 H VBG pO2 27 VBG HCO3 28 H VBG Total CO2 29 VBG O2 Sat (Calc) 53 VBG Base Excess 3 POC Mix VBG pCO2 Pt Tmp 40.7 L O2 Delivery Device Not entered Radiography Diagnostic Testing: Clinical Impression(s) from Imaging Studies Abdomen/Pelvis CT 10/22/23 04:57 IMPRESSION: 1. Bilateral hydroureteronephrosis, new compared to prior study. This appears to be more acute on the right where there is delayed excretion and extensive perinephric stranding, with a filling defect likely obstructing the right ureteral orifice at the bladder. Left ureteral obstruction possibly secondary to the bladder wall thickening. 2. Marked bladder wall thickening with adjacent stranding. This may be secondary to the adjacent uterine process, uterine cancer by history the prior study, and/or acute cystitis or combination. 3. Vesicovaginal fistula demonstrated with contrast in the vagina, similar to prior. Electronically Signed: Della Mina MD at 6:22 EDT , Chest X-Ray 10/22/23 05:20 IMPRESSION: No evidence of active intrathoracic disease. Electronically Signed: Della Mina MD at 5:53 EDT , Discharge Plan Triage Chief Complaint: Shortness of Breath Other Complaint: Flank Pain Vag Bleeding ED Provider: Joshua Dean Dx/Rx/DC Orders Prescriptions: No Action multivitamin Tablet 1 tab PO DAILY Primary Care Provider: Salo Dyer Referrals: Salo Dyer DO [Primary Care Provider] - Print Language: Turkish
--- NOTE | 2023-10-22 04:57 | EKG12_ITS ---
Test Reason : SOB Blood Pressure : / mmHG Vent. Rate : 124 BPM Atrial Rate : 124 BPM P-R Int : 122 ms QRS Dur : 078 ms QT Int : 292 ms P-R-T Axes : 075 070 053 degrees QTc Int : 419 ms Sinus tachycardia Otherwise normal ECG Confirmed by PENNY VILLEDA, ABIGAIL ([id number]), editor newspaper ADAM LOU ([id number]) on 10/23/2023 9:45:46 AM Referred By: Confirmed By:ABIGAIL FRANCIS MD
--- NOTE | 2023-10-22 04:57 | CT_ITS ---
EXAM: CT Abdomen And Pelvis W/ Contrast Injection HISTORY: Abdominal pain/flank pain TECHNIQUE: Routine protocol CT abdomen pelvis. IV Contrast: IV 100mL Isovue-300 . Oral Contrast: without. Sagittal and coronal images were reconstructed. RADIATION DOSAGE (If Supplied By Facility): CTDIvol = ( 19.44 ) mGy, DLP = ( 2192.96 ) mGycm Individualized dose optimization techniques were used for this CT. COMPARISON: CT abdomen and pelvis 09/13/2023. LIMITATIONS: None. FINDINGS: LOWER CHEST: Lung bases are clear. Small pericardial effusion. LIVER: Unremarkable. GALLBLADDER/BILE DUCTS: Gallbladder surgically absent. PANCREAS: Unremarkable. SPLEEN: Small calcifications previous granulomatous process.. ADRENAL GLANDS: Unremarkable. KIDNEYS / URETERS: Bilateral moderate hydroureteronephrosis, with both ureters dilated to the bladder. No ureteral calculi identified. On the right, delayed excretion from the right kidney with no contrast in the collecting system or ureter on the delayed series, with perinephric stranding. No perinephric stranding on the left. BOWEL / MESENTERY: Unremarkable. No bowel obstruction. APPENDIX: Identified and normal. No evidence of acute appendicitis. PERITONEUM: No free air. No free fluid. VESSELS: Abdominal aorta is normal caliber. RETROPERITONEUM: Unremarkable. REPRODUCTIVE ORGANS: Contrast within the vagina on the delayed series, as on the prior. BLADDER: Minimally distended. Diffuse thickened wall with irregular contour. Adjacent stranding. There is an irregular nonopaque filling defect near the right ureteral orifice, measures approximately 1.4 x 1.1 cm, in the region of vesicovaginal fistula and is outlined by the contrast. ABDOMINAL WALL: Structure overlying the perineum with curvilinear foci of air presumably external, overlying the patient. No definite air in soft tissues. Mildly enlarged inguinal lymph nodes bilaterally. BONES: No acute abnormality. OTHER: None. CT/Abdomen/Pelvis W IV Cont ONLY IMPRESSION: 1. Bilateral hydroureteronephrosis, new compared to prior study. This appears to be more acute on the right where there is delayed excretion and extensive perinephric stranding, with a filling defect likely obstructing the right ureteral orifice at the bladder. Left ureteral obstruction possibly secondary to the bladder wall thickening. 2. Marked bladder wall thickening with adjacent stranding. This may be secondary to the adjacent uterine process, uterine cancer by history the prior study, and/or acute cystitis or combination. 3. Vesicovaginal fistula demonstrated with contrast in the vagina, similar to prior. Electronically Signed: Della Mina MD at 6:22 EDT ,
[2023-10-22] MEDS: Ketorolac 15 MG/ML Vial IV (05:20)
[2023-10-22] MEDS: Metoclopramide 10 MG/2 ML Vial 5 MG IV (05:20)
--- NOTE | 2023-10-22 05:20 | RAD_ITS ---
INDICATION: Cough, fever EXAMINATION/TECHNIQUE: X-RAY - XR Chest 1 View AP portable. 5:20 AM COMPARISON: 04/21/2023 FINDINGS: LINES/DEVICES: None. LUNGS: No consolidation. No pneumothorax. MEDIASTINUM: Unremarkable. CARDIAC SILHOUETTE: Not enlarged. BONES AND SOFT TISSUES: No acute abnormalities. RAD/Chest 1 View (Portable) IMPRESSION: No evidence of active intrathoracic disease. Electronically Signed: Dlela Mina MD at 5:53 EDT ,
[2023-10-22] MEDS: 0.9% Normal Saline (500mL Bag) 500 ML 1000 ML IV (05:21)
[2023-10-22] MEDS: Acetaminophen 500 MG Tablet PO ×2 (05:21→06:33)
[2023-10-22 05:26] LABS: Hematocrit 33.7 % (37-47); Hemoglobin 10.8 g/dL (12.0-15.0); Mean Corpuscular Hgb 26.9 pg (27.0-32.0); Mean Corpuscular Volume 83.8 fL (81-99); Mean Platelet Vol. 9.9 fl (6.2-12.0); Platelet Count 268 K/mm3 (150-450); RBC Distribution Width CV 14.5 % (11.6-14.6); RBC Distribution Width SD 44.5 fl (35.1-43.9); Red Blood Count 4.02 M/mm3 (4.2-5.4); White Blood Count 15.3 K/mm3 (4.4-11.0)
[2023-10-22 05:40] LABS: BNP,B-Type NATRIURETIC PEPTIDE 136.6 pg/mL (0-100)
[2023-10-22 05:43] LABS: Blood Gas Specimen Type VEN; O2 Delivery Device Not entered; SITE Not entered; VBG BASE EXCESS 3 mmol/L (-1.0-3.5); VBG Bicarbonate 28 mmol/L (22-26); VBG PO2 27 mmHg (25-40); VBG SO2 53 % (50-70); VBG TCO2 29 mmol/L (23-33); VBG pCO2 40.7 mmHg (41-51); VBG pH 7.44 (7.32-7.42)
[2023-10-22 05:43] LABS: ALB/GLOB Ratio 0.6 RATIO (0.9-2.4); AST(SGOT) 31 U/L (15-37); Alanine Aminotransfer ALT/SGPT 30 U/L (13-56); Albumin, Serum 2.7 g/dL (3.2-5.0); Alkaline Phosphatase 85 U/L (45-117); Anion Gap 4 (5-15); BUN 17 mg/dL (7-18); BUN/Creat Ratio 9.9 RATIO (10-20); Calcium,Total 8.4 mg/dL (8.5-10.1); Chloride 98 mmol/L (98-107); Creatinine, Serum 1.71 mg/dL (0.55-1.02); EST Glomerular Filtration Rate 33 mL/min (>60); Est Glom Filt Rate - Afr Amer 40 mL/min (>60); Estimated Creatinine Clearance 47.53 ml/min; Globulin 4.2 g/dL (2.2-4.2); Glucose 158 mg/dL (74-106); Lactic Acid 0.9 mmol/L (0.4-1.9); Potassium 3.5 mmol/L (3.5-5.1); Protein, Total 6.9 g/dL (6.4-8.2); Sodium Level 131 mmol/L (136-145); Troponin-I HS (w/2H Reflex) 12 pg/mL (3.0-54.0)
[2023-10-22] MEDS: Albuterol 2.5 MG/3 ML VIAL.NEB. INHALATION (06:03)
[2023-10-22 06:16] LABS: Color, Urine Yellow (Yellow); Glucose, Dipstick Normal (Normal); Ketone-Dipstick Negative (Negative); Leukocyte Esterase-Dipstick 500 /ul (Negative); Nitrite-Dipstick Negative (Negative); Occult Blood-Urine 250 /ul (Negative); Protein-Dipstick 100 mg/dl (Negative); Urine Bilirubin Dipstick Negative (Negative); Urine Clarity Sl. Cloudy (Clear); Urine Urobilinogen Normal (Normal)
[2023-10-22 06:25] LABS: Bacteria 3+ /hpf (None Seen); Fine Granular Cast- Urine 5-10 SEEN /lpf (0-5); Hyaline Cast 10-25 SEEN /lpf (0-5); Mucous, Urine 2+ /hpf (<or=2+); Red Blood Cells-Urine 10-25 SEEN /hpf (0-5); Squamous Epithelial Cells - UA 5-10 SEEN /hpf (5-10); White Blood Cells 10-25 SEEN /hpf (0-5)
[2023-10-22] MEDS: 0.9% Normal Saline (1000mL) 1,000 ML 500 ML IV (06:32)
[2023-10-22 07:20] LABS: Reflex Troponin-HS? (from REC) Y
[2023-10-22 07:38] LABS: Troponin-I HS 14 pg/mL (3.0-54.0)
[2023-10-22] MEDS: Piperacil/Tazobactam 3.375 GM in 0.9% Normal Saline (50mL MB+) 50 ML IV (08:01)
[2023-10-22] MEDS: Vancomycin HCl 1,500 MG in 0.9% Normal Saline (500mL Bag) 500 ML 250 MG IV (08:35)
== END 2023-10-22 10:41 | disposition short-term general hospital (02) ==
PROVIDERS: Emergency Provider Emergency Medicine; PCP Student in an Organized Health Care Education/Training Program; Visit Provider Emergency Medicine
DX: A41.9 Sepsis, unspecified organism (principal); C53.9 Malignant neoplasm of cervix uteri, unspecified; D72.829 Elevated white blood cell count, unspecified; N32.89 Other specified disorders of bladder; N17.9 Acute kidney failure, unspecified; E87.1 Hypo-osmolality and hyponatremia; N93.9 Abnormal uterine and vaginal bleeding, unspecified; R51.9 Headache, unspecified; J45.909 Unspecified asthma, uncomplicated; F17.210 Nicotine dependence, cigarettes, uncomplicated; Z90.49 Acquired absence of other specified parts of digestive tract; N82.0 Vesicovaginal fistula; N13.1 Hydronephrosis with ureteral stricture, not elsewhere classified; R10.9 Unspecified abdominal pain
CPT/HCPCS: 51701; 71045; 74177; 80053; 81001; 82803; 83605; 83880; 84484; 85027; 87040; 87077; 87086; 87088; 87149; 87631; 93005; 94640; 96361; 96365; 96367; 96375; 99285; J7030; J7040; P9612; Q9967; A4216

== ENCOUNTER 2023-11-16 23:50 | Emergency (ER) | payer MEDICAID, SELFPAY ==
[2023-11-16 23:51] VITALS: BP 155/104; PULSE 111; RESP 18; TEMP 36.7; O2SAT 98; BMI 44.2
--- NOTE | 2023-11-17 02:17 | EX.ED.DYSGE1 ---
HPI History of Present Illness Chief Complaint: Wound Check Informant: patient Narrative Narrative: Patient is a 53-year-old female who had nephrostomy tubes placed and states that whenever dressing was used to cover them she appears to be allergic to. She states that she has had redness and itch along the dressing sites of the nephrostomy tube insertion bilateral. She also reports she has now had rash and itching to the bilateral arms. She states she is currently on antibiotic but also has the exposure of the nephrostomy tube dressings and is unsure what is causing her rash. She denies interval breathing or swallowing but states that secondary to the persistent itching she could not sleep and therefore comes in for evaluation. [facility] Medical History Cervical cancer Home Medications ?Medication ?Instructions ?Recorded ?Last Taken ?Type multivitamin 1 tab PO DAILY 02/13/22 Unknown History desonide 0.05 % topical cream 1 applic topical TID PRN itching 11/17/23 Unknown Rx #60 grams prednisone 20 mg tablet 40 mg (2 x 20 mg) PO DAILY 5 days 11/17/23 Unknown Rx #10 tabs Allergy/AdvReac Type Severity Reaction Status Date / Time levofloxacin (From Levaquin) Allergy Rash Verified 11/16/23 23:55 Surgical History H/O: History of cholecystectomy Social History Smoking Status: Current every day smoker tobacco type: cigarettes substance use type: does not use ROS ROS ED Constitutional Constitutional ED: Denies chills or fever(s) Eyes Eyes: Denies blurry vision or change in vision ENT ENT ED: Denies sore throat Cardiovascular Cardiovascular: Denies chest pain Respiratory/Chest Respiratory/Chest: Denies cough or dyspnea Gastrointestinal Gastrointestinal: Denies abdominal pain, diarrhea, nausea or vomiting Musculoskeletal Musculoskeletal: Denies myalgias Integumentary Reports rash Neurologic Neurologic: Denies headache(s) Hematologic/Lymphatic Hematologic/Lymphatic: Denies easy bleeding or easy bruising Allergic/Immunologic Allergic/Immunologic ED: Reports urticaria; Denies mouth swelling or tongue swelling EXAM Physical Exam Const Vital Signs: 11/16/23 23:51 Temperature 98.1 F Temperature Source Temporal Pulse Rate 111 H Respiratory Rate 18 Blood Pressure 155/104 H Blood Pressure Mean 121 Pulse Ox 98 Oxygen Delivery Method Room Air Positive well nourished, well developed and obese General Appearance ED: well developed Nutritional Appearance: obese HEENT Reports moist mucous membranes HEENT Narrative: No tongue or lip swelling no oral lesions no airway edema or compromise Eyes PERRL and EOMs intact bilaterally General Eye ED: Negative for scleral icterus Neck supple Resp normal respiratory effort and clear to auscultation bilaterally Resp Narrative: No nasal flaring retractions tachypnea or accessory muscle use Cardio regular rate and regular rhythm GI normal to inspection, nondistended, normoactive bowel sounds, non-tender, non-distended and no masses Auscultation: normoactive bowel sounds Palpation: soft Back/Spine Back/Spine Narrative: Patient has bilateral nephrostomy tubes in place that appear to be functioning well draining clear yellow urine. In a rectangular pattern around the nephrostomy tube coinciding with the patient's dressing is erythema warmth and urticaria that is blanchable in nature most consistent with contact dermatitis. No vesicular or pustule changes and no lymphangitic streaking noted. No abscess formation. Extremity Extremity Narrative: Patient has similar soft tissue changes to the dorsum of bilateral hands and this extends up to the proximal humerus Neuro oriented x3, CN's II-XII intact bilaterally and no sensory deficits noted Sensorium / Orientation: alert Motor Exam: strength 5/5 throughout Psych mental status grossly normal Skin Skin Narrative: Lesions along the bilateral nephrostomy tubes and bilateral arms as documented above without involvement of the palms or soles MDM MDM MDM Narrative Medical decision making narrative: Patient arrived to the ER with complaint of rash. She did not have tongue or lip swelling there were no oral lesions there are no findings concerning for angioedema or Everett-Mohit syndrome. The rash did not have an infectious process such as shingles or cellulitis or abscess. The area was urticarial in nature and consistent with allergic reaction/inflammation. I felt that this was not antibiotic induced as the rash was located to the arms and around the nephrostomy tube dressing sites but nowhere else and an antibiotic would cause a systemic reaction. Initially I ordered IV Solu-Medrol Benadryl and Pepcid to help with the acute allergic reaction. The patient was a difficult stick and did not want any more IV attempts. Therefore her medication was changed to oral. She is not in respiratory distress she does not have secondary infection changes there is no signs of angioedema or Everett-Mohit syndrome or anaphylaxis and therefore there is no need for workup and she is otherwise safe for discharge History & Record Review Discussion w/independent historian: Patient Discharge Plan Triage Chief Complaint: Wound Check ED Provider: Edy Ibarra Dx/Rx/DC Orders Clinical Impression: Contact dermatitis, History of cervical cancer, Nephrostomy present Instructions: ED General Allergic Reactions, ED Contact Dermatitis Prescriptions: New prednisone 20 mg tablet 40 mg PO DAILY 5 Days Qty: 10 0RF desonide 0.05 % cream 1 applic topical TID PRN (Reason: itching) Qty: 60 0RF No Action multivitamin Tablet 1 tab PO DAILY Primary Care Provider: Salo Dyer Referrals: Salo Dyer DO [Primary Care Provider] - Activity Restrictions/Additional Instructions: Your rash/symptoms are consistent with a allergic reaction most likely from the adhesive of your bandages. Please take the prednisone and use the topical steroid cream to help with itching rash. Please continue your antibiotic that was prescribed from your previous physician as the rash does not appear to be related to this. Return to the ER should you have any further concerns Print Language: Barbadian Disposition Disposition: Home, Self Care Discharge Date/Time: 11/17/23 02:35
--- NOTE | 2023-11-17 02:22 | ED.RN ---
This RN educated pt that she will be getting an IV started to administer medications. With first IV attempt, the pt's vein blew. Pt stated can you get someone who knows how to do this. This RN reassured pt that she starts several IVs per shift but sometimes veins can blow and not work well despite having good veins in the past. RN told pt she was going to get a smaller needle to start a vein in her hand. Pt informed RN that her hands veins are too small and you will go right through the vein. After the vein blowing again on second attempt, pt ripped arm from nurse removing IV catheter from skin yelling at RN to take the IV out. Pt requested to not have an IV and that she has PO Benadryl at home and only wants her nephro dressings changed. Pt began yelling at nurse saying she has been in the hospital too many times recently and is tired of being poked. RN asked pt to not speak to her in that tone and to please change her attitude and that I'm only trying to help her. Pt stated Well you suck at this. RN exited pt room and informed DR and charge nurse of encounter.
== END 2023-11-17 02:35 | disposition home or self-care (01) ==
PROVIDERS: Emergency Provider Emergency Medicine; PCP Student in an Organized Health Care Education/Training Program; Visit Provider Emergency Medicine
DX: L23.9 Allergic contact dermatitis, unspecified cause (principal); Z93.6 Other artificial openings of urinary tract status; F17.210 Nicotine dependence, cigarettes, uncomplicated; E66.9 Obesity, unspecified; Z85.41 Personal history of malignant neoplasm of cervix uteri
CPT/HCPCS: 99282; A4216; J3490

== ENCOUNTER 2023-12-14 23:53 | Emergency (ER) | payer MEDICAID, SELFPAY ==
[2023-12-14 23:55] VITALS: BP 156/106; PULSE 113; RESP 18; TEMP 36.8; O2SAT 97; BMI 44.7
[2023-12-14 23:59] VITALS: BP 143/94; PULSE 110; RESP 18; TEMP 36.4; O2SAT 98
--- NOTE | 2023-12-15 00:20 | CT_ITS ---
STUDY: CT ABDOMEN AND PELVIS WITH CONTRAST REASON FOR EXAM: Female, 53 years old patient with abdominal pain. RADIATION DOSAGE (If Supplied By Facility): CTDIvol = ( 18.73 ) mGy, DLP = ( 1234.65 ) mGycm TECHNIQUE: Transaxial images were obtained from the dome of the diaphragm to the symphysis pubis without oral contrast. 100 mL of IV Isovue-370 was administered. Sagittal and coronal images were reconstructed. Individualized dose optimization techniques were used for this CT. COMPARISON: CT of abdomen and pelvis dated October 22, 2023. FINDINGS: The visualized lung bases are unremarkable. The visualized portions of the heart are within normal limits. Normal liver. There are surgical clips in the gallbladder fossa consistent with a prior cholecystectomy. There are multiple benign calcified granulomata of the spleen. Normal pancreas. Normal bilateral adrenal glands. There is moderate right-sided hydronephrosis and hydroureter. There may be a diversion ileostomy. There is moderate left-sided hydronephrosis and hydroureter with a catheter within the distal left ureter that appears to be diverted to an ileostomy and exits the right lower quadrant abdominal wall. Left-sided perinephric fluid. Normal visualized stomach. There is no obvious dilated bowel, ascites or pneumoperitoneum. There is stool and/or gas visible within the colon. There is non-visualization of the appendix. Normal abdominal aorta. There is venous distention of the inferior vena cava (IVC). Normal retroperitoneum. The urinary bladder is not well seen. Normal visualized uterus. There is a catheter exiting the right lower quadrant abdominal wall apparently related to diversion of the ureters. There is also a apparent loculated collection in the left paramedian abdominal wall measuring approximately 4.4 x 2.7 x 4.7 cm in size. Normal osseous structures. CT/Abdomen/Pelvis W IV Cont ONLY IMPRESSION: Persistent hydronephrosis, left more severe than right with what appears to be a diversion of the ureters to the right lower quadrant abdominal wall. Electronically Signed: Maria Eugenia Milian MD at 2:21 EDT ,
[2023-12-15] MEDS: Morphine 4 MG/ML Syringe IV (00:27)
[2023-12-15] MEDS: Ondansetron 4 MG/2 ML Vial IV (00:27)
[2023-12-15 00:31] LABS: Absolute Lymphocyte Count 1.63 X10^3/uL (0.83-4.51); Absolute Neutrophil Count 9.3 X10^3/uL (2.0-7.7); Basophil# 0.05 X10^3/uL; Basophil% 0.4 % (0-1); Eosinophil# 0.39 X10^3/uL; Eosinophils% 3.2 % (0-5); Hemoglobin 9.6 g/dL (12.0-15.0); Lymphocyte # 1.63 X10^3/ul (0.83-4.51); Lymphocyte % 13.3 % (19-41); Mean Corpuscular Hgb 25.5 pg (27.0-32.0); Mean Corpuscular Volume 85.1 fL (81-99); Mean Platelet Vol. 9.4 fl (6.2-12.0); Monocyte# 0.79 X10^3/uL; Monocyte% 6.5 % (0-10); NRBC Flagged by Analyzer 0 % (0-5); Neutrophil # 9.26 X10^3/uL (2.7-7.7); Neutrophil % 75.9 % (47-70); POSITIVE COUNT YES; RBC Distribution Width CV 16.9 % (11.6-14.6); RBC Distribution Width SD 52.3 fl (35.1-43.9); Red Blood Count 3.76 M/mm3 (4.2-5.4); White Blood Count 12.2 K/mm3 (4.4-11.0)
[2023-12-15 00:36] LABS: Differential Indicated SCAN CRITERIA MET; Platelet Count 786 K/mm3 (150-450)
--- NOTE | 2023-12-15 00:42 | EX.ED.DYSGE1 ---
HPI History of Present Illness Chief Complaint: Abd Pain Informant: patient Narrative Narrative: Patient is a 83-year-old female with past medical history of cervical cancer. 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 She states she has been home now for approximately 1 week. She states she has been having bouts of loose stool/diarrhea. She reports that the loose stool/diarrhea resolved in the last 1 to 2 days but now she is having increasing pain in the left lower quadrant. She denies any fevers or chills but states that because of the worsening pain she presents for evaluation. [facility] Medical History Cervical cancer Home Medications ?Medication ?Instructions ?Recorded ?Last Taken ?Type desonide 0.05 % topical cream 1 applic topical TID PRN itching 11/17/23 Unknown Rx #60 grams acetaminophen 500 mg tablet 1,000 mg PO Q6H PRN pain 12/15/23 Unknown History (Acetaminophen Pain Relief) ondansetron 4 mg disintegrating 4 mg PO TID PRN nausea and 12/15/23 Unknown Rx tablet vomiting #21 tabs oxycodone-acetaminophen 5 mg-325 1 tab PO Q6H PRN pain 3 days #12 12/15/23 Unknown Rx mg tablet (Percocet) tabs sulfamethoxazole 800 1 tab PO BID 7 days #14 tabs 12/15/23 Unknown Rx mg-trimethoprim 160 mg tablet (Bactrim DS) Allergy/AdvReac Type Severity Reaction Status Date / Time No Known Allergies Allergy Verified 12/15/23 00:00 Surgical History (Updated 12/15/23 @ 00:13 by Angelique Cameron) History of urostomy H/O: History of cholecystectomy Social History Smoking Status: Current every day smoker tobacco type: cigarettes substance use type: does not use ROS ROS ED Constitutional Constitutional ED: Denies chills or fever(s) ENT ENT ED: Denies sore throat Cardiovascular Cardiovascular: Denies chest pain Respiratory/Chest Respiratory/Chest: Denies cough or dyspnea Gastrointestinal Gastrointestinal: Reports abdominal pain and diarrhea; Denies melena, nausea or vomiting Genitourinary Genitourinary ED: Denies hematuria Musculoskeletal Musculoskeletal: Reports back pain Integumentary Denies rash Neurologic Neurologic: Denies headache(s) Hematologic/Lymphatic Hematologic/Lymphatic: Denies easy bleeding or easy bruising EXAM Physical Exam Const Vital Signs: 12/14/23 23:55 12/14/23 23:59 12/15/23 00:59 Temperature 98.2 F 97.5 F L 98.3 F Temperature Source Oral Temporal Temporal Pulse Rate 113 H 110 H 111 H Respiratory Rate 18 18 15 Blood Pressure 156/106 H 143/94 H 145/87 H Blood Pressure Mean 122 110 106 Pulse Ox 97 98 93 Oxygen Delivery Method Room Air Room Air Room Air 12/15/23 02:00 Temperature 97.9 F Temperature Source Oral Pulse Rate 108 H Respiratory Rate 12 Blood Pressure 113/72 Blood Pressure Mean 85 Pulse Ox 94 Oxygen Delivery Method Room Air Positive well nourished, well developed and obese General Appearance ED: well developed and pallor Nutritional Appearance: obese HEENT HEENT Narrative: Normocephalic atraumatic Eyes PERRL and EOMs intact bilaterally General Eye ED: Negative for scleral icterus Neck supple Chest Wall palpation of chest normal Resp normal respiratory effort and clear to auscultation bilaterally Resp Narrative: No nasal flaring retractions tachypnea or accessory muscle use Cardio regular rhythm Rate: tachycardic and other Other Details: Tachycardic rate with regular rhythm Radial and carotid pulses are equal and symmetric GI non-distended and no masses GI Narrative: Abdomen is obese soft and nondistended with hyperactive bowel sounds. Patient has surgical scars consistent with her recent procedure that are clean dry and intact that do not show changes for secondary infection. Urostomy is present in the mid to lower abdomen draining clear yellow urine. There is pain on palpation in the left lower quadrant but no voluntary guarding or rigidity. No peritoneal signs or pulsatile mass. Auscultation: hyperactive bowel sounds Palpation: soft Extremity normal to inspection Extremity Narrative: No asymmetric edema no pitting edema negative Homans' sign bilaterally Neuro oriented x3, CN's II-XII intact bilaterally and no sensory deficits noted Sensorium / Orientation: alert Motor Exam: strength 5/5 throughout Psych mental status grossly normal Skin Skin Narrative: Postsurgical changes to the abdomen as documented above General Skin Exam: pallor; Negative for jaundice MDM MDM MDM Narrative Medical decision making narrative: Patient arrived to the ER hypertensive but otherwise with stable vital. She reported pain in the left lower quadrant status post surgery. The patient had a urostomy placed after her bladder was removed and her pain is localized more to the left lower quadrant when the urostomy is present in the midline. There is yellow urine present within the urostomy indicating it is functioning properly. Her surgical wounds appear clean dry and intact going against dehiscence or secondary infection such as cellulitis or abscess. The pain in the left lower quadrant there is concern for intestinal obstruction versus perforation versus intestinal abscess versus diverticulitis. Therefore elected to perform basic laboratory studies and a CT scan with IV contrast. White count was slightly elevated at 12 with mild left shift as her absolute neutrophil count is slightly bumped at 9.3. CT scan revealed bilateral hydroureteronephrosis but stents are in place and intact and we know they are functioning as the urostomy is still draining urine. Her kidney function is also normal going against acute kidney injury. The patient does have a loculated fluid collection in the left paramedian region which is most likely seroma as this is the location of her recent surgical process and urostomy. The patient does not have pain at that site but in the left lower quadrant and therefore does not clinically correlate and I have low concern that it is this soft tissue loculation causing her left lower abdominal. There is also reported left-sided perinephric stranding but the patient's pain is not retroperitoneal but in the left lower quadrant therefore this is not also clinically correlate. After receiving medication ER patient had resolution of pain and on repeat evaluation her abdomen remains soft and nonsurgical. Therefore with stable vitals and CT scan showing standard postoperative changes without perforation or obstruction or internal abscess formation I do not feel there is need for emergent transfer. As the patient's white count and neutrophil count are slightly elevated I will place her on a short round of Bactrim secondary to concern for developing infection but without vitals or exams indicating sepsis or acute kidney injury or signs of intestinal abscess or perforation she is otherwise safe for discharge and can follow-up with her surgeon on an outpatient basis. History & Record Review Discussion w/independent historian: Patient Lab Data Attestation: I reviewed the patient's lab results. Labs: Laboratory Results - last 24 hr 12/15/23 00:15 WBC 12.2 H RBC 3.76 L Hgb 9.6 L Hct 32.0 L MCV 85.1 MCH 25.5 L MCHC 30.0 L RDW Std Deviation 52.3 H RDW Coeff of Agnieszka 16.9 H Plt Count 786 H* MPV 9.4 Immature Gran % (Auto) 0.700 Neut % (Auto) 75.9 H Lymph % (Auto) 13.3 L [place] % (Auto) 6.5 Eos % (Auto) 3.2 Baso % (Auto) 0.4 Absolute Neuts (auto) 9.3 H Absolute Lymphs (auto) 1.63 Nucleated RBC % 0 Diff Path Review May foll Platelet Estimate MKD INC Sodium 139 Potassium 4.1 Chloride 107 Carbon Dioxide 27.0 Anion Gap 5 BUN 11 Creatinine 0.98 Estim Creat Clear Calc 81.92 Est GFR (MDRD) Af Amer 76 Est GFR (MDRD) Non-Af 63 BUN/Creatinine Ratio 11.2 Glucose 129 H Calcium 8.8 Discharge Plan Triage Chief Complaint: Abd Pain ED Provider: Edy Ibarra Dx/Rx/DC Orders Clinical Impression: Postoperative abdominal pain, History of cervical cancer, Hydroureteronephrosis Instructions: Abdominal Pain, Pain Management After Surgery Prescriptions: New sulfamethoxazole-trimethoprim [Bactrim DS] 800-160 mg tablet 1 tab PO BID 7 Days Qty: 14 0RF ondansetron 4 mg tablet,disintegrating 4 mg PO TID PRN (Reason: nausea and vomiting) Qty: 21 0RF oxycodone-acetaminophen [Percocet] 5-325 mg tablet 1 tab PO Q6H PRN (Reason: pain) 3 Days Qty: 12 0RF No Action desonide 0.05 % cream 1 applic topical TID PRN (Reason: itching) Qty: 60 0RF acetaminophen [Acetaminophen Pain Relief] 500 mg tablet 1,000 mg PO Q6H PRN (Reason: pain) Primary Care Provider: Salo Dyer Referrals: Salo Dyer DO [Primary Care Provider] - Activity Restrictions/Additional Instructions: Please follow-up with your surgeon for repeat evaluation and return to the ER should you have any further concern Print Language: Latvian Disposition Disposition: Home, Self Care
[2023-12-15 00:59] VITALS: BP 145/87; PULSE 111; RESP 15; TEMP 36.8; O2SAT 93
[2023-12-15 01:19] LABS: Platelet Estimate MKD INC (ADEQ)
[2023-12-15 01:33] LABS: Anion Gap 5 (5-15); BUN 11 mg/dL (7-18); BUN/Creat Ratio 11.2 RATIO (10-20); Calcium,Total 8.8 mg/dL (8.5-10.1); Chloride 107 mmol/L (98-107); Creatinine, Serum 0.98 mg/dL (0.55-1.02); EST Glomerular Filtration Rate 63 mL/min (>60); Est Glom Filt Rate - Afr Amer 76 mL/min (>60); Estimated Creatinine Clearance 81.92 ml/min; Glucose 129 mg/dL (74-106); Potassium 4.1 mmol/L (3.5-5.1); Sodium Level 139 mmol/L (136-145)
[2023-12-15 02:00] VITALS: BP 113/72; PULSE 108; RESP 12; TEMP 36.6; O2SAT 94
[2023-12-15 02:54] VITALS: BP 113/72; PULSE 105; RESP 18; TEMP 36.8; O2SAT 95
[2023-12-15 03:00] VITALS: RESP 16
[2023-12-18 13:53] LABS: Pathologist Review Reviewed
== END 2023-12-15 02:54 | disposition home or self-care (01) ==
PROVIDERS: Emergency Provider Emergency Medicine; PCP Student in an Organized Health Care Education/Training Program; Visit Provider Emergency Medicine
DX: R10.32 Left lower quadrant pain (principal); Z85.41 Personal history of malignant neoplasm of cervix uteri; Z90.49 Acquired absence of other specified parts of digestive tract; F17.210 Nicotine dependence, cigarettes, uncomplicated; Z98.890 Other specified postprocedural states; N13.30 Unspecified hydronephrosis
CPT/HCPCS: 74177; 80048; 85025; 96374; 96375; 99282; Q9967; A4216; J2405